=== PATIENT | female | born 1935 | race Caucasian/White ===

== ENCOUNTER 2016-07-14 15:38 | Inpatient (IN) | payer MEDICARE ==
[2016-07-14] MEDS ORDERED: ACETAMINOPHEN 325 MG/TAB TABLET PO ONE (15:44)
[2016-07-14] MEDS ORDERED: NS 1,000 ML IV ONE (15:44)
--- NOTE | 2016-07-14 15:50 | EDPRACDOC ---
- General Information Stated Complaint: FEVER Time Seen by Provider: 07/14/16 15:41 Information Source: Patient, Reading Tutor Mode Of Arrival: Ambulance Home Medications: Home Medications Aspirin [Aspirin EC] 81 mg PO QHS 07/31/13 Calcium Carbonate + Vitamin D [Oscal with Vitamin D] 500 mg PO BID 07/31/13 Cholecalciferol (Vitamin D3) [Vitamin D] 1,000 unit PO DAILY 07/31/13 Hydrochlorothiazide 25 mg PO QAM 07/31/13 Losartan Potassium 100 mg PO DAILY 07/31/13 Liraglutide [Victoza 18 mg/3 ml Pen] 1.8 units SQ DAILY 08/08/14 Omeprazole 20 mg PO DAILY 08/08/14 Fish Oil/Dha/Epa [Fish Oil 1,200 mg Fish Oil] 2 cap PO DAILY 04/29/16 Venlafaxine HCl ER [Effexor Xr] 75 mg PO DAILY PRN 04/29/16 Alprazolam [Xanax] 2 mg PO .PRIOR TO MRI 05/29/16 Cyclobenzaprine HCl [Flexeril] 5 mg PO TID PRN 05/29/16 Promethazine [Phenergan] 25 mg PO Q6H PRN 05/29/16 Fentanyl [Duragesic 25 mcg/hr patch] 25 mcg TOP Q72H #10 patch 06/05/16 LIDOCAINE 5% Patch [Lidoderm 5% Patch] 3 pat TOP Q24H #90 patch 06/05/16 Nabumetone [Relafen] 750 mg PO BID #30 tablet 06/05/16 Oxycodone Immediate Release [Oxycodone Immediate Release (OxyIR)] 5 mg PO Q6H PRN #30 tab 06/05/16 Acetaminophen [Tylenol] 650 mg PO QID 07/14/16 Loperamide HCl [Loperamide] 4 mg PO Q4H PRN 07/14/16 Lorazepam 0.5 mg PO QHS 07/14/16 Ondansetron [Ondansetron Odt] 8 mg PO TID 07/14/16 Sennosides [Senna] 17.2 mg PO QHS 07/14/16 Tramadol HCl [Ultram] 50 mg PO BID 07/14/16 Allergies/Adverse Reactions: Allergies Allergy/AdvReac Type Severity Reaction Status Date / Time pollen extracts Allergy See Verified 05/29/16 12:04 Comments - History of Present Illness Onset: PARCEL POST DELIVERY Exact Onset of Symptoms: Unknown HPI: PT SAID THAT SHE HAS BEEN WEAK FOR THE PAST FEW DAYS. SHE WAS ADMITTED IN MAY FOR RESP FAILURE AND SACRAL FX. SHE WENT TO [facility] AND WAS D/C'D 2 WEEKS AGO. PT SAID THAT SHE FEELS LIKE SHE IS GOING TO PASS OUT IF SHE STANDS UP. Symptoms Started: Reports: Gradually Symptoms Description: Worsening Weakness: Bilateral: Generalized Symptoms: Reports: Near Syncope, Weak Symptom Severity: Reports: Does not affect activitiy Associated signs and symptoms:: Reports: None ED Past Medical History - Patient Medical History Cardiac History: Reports: Hypertension, Hypercholesterolemia GI/ History: Reports: Urinary Tract Infection Musculoskeletal History: Reports: Arthritis Psychological History: Reports: Anxiety. Denies: Depression, Substance Use Disorder Systemic History: Reports: Cancer (skin cancer), Diabetes Surgical History: Reports: Hysterectomy (FULL), Other (SKIN CANCER RESECTION) - Family Medical History Reports: Hypertension, Diabetes, Stroke. Denies: Cancer - Social Medical History Smoking Status: Never smoker Social History: Denies: Substance Use Disorder ETOH: None Substance Abuse: None Lives In: Home EDM Review of Systems - Review of Systems ROS Negative Except as Marked: Yes All systems reviewed and were negative except as marked Constitutional: Fever, Weakness - Physical Exam Constitutional: Alert (Awake), Distress Oriented to: Time, Person, Place Last recorded Vital Signs: Oxygen Pulse Oxygen Saturation O2 Device Oxygen Flow Rate Fraction of Inspired Oxygen ( FIO2) - HEENT Head: Normal ( normocephalic) Eye Exam: Pale Conjunctiva Oropharynx: Other (STOMATITIS) ENT EAC: Normal TMJ: Normal Nose: No Symptoms Reported (septum midline) Neck: Normal (FROM, trachea at midline) - Respiratory/Cardiovascular Respiratory: Rhonchi Cardiovascular: Tachycardia - GI Auscultation: Normal (NABS) Palpation: Normal (Soft,No rebound or guarding, non distended) Tenderness: Non tender Soliz's Sign: Negative Rectal Exam: Heme positive stool Stool: Brown - Musculoskeletal Back: Normal (Non-Tender) Extremities: Normal (Normal tone, Pulses 2+ No cyanosis or edema, FROM) - Integumentary Skin: Hot, Dry Lymphatics: Normal (no adenopathy) - Neurologic Memory Impaired: Normal Motor Function: Normal (Normal tone, Pulses 2+ No cyanosis or edema, FROM) Cranial Nerve: Normal (CN II-X11 intact sensation, strength 5/5) Cerebellar: Normal Mood Description: Normal Thought: Coherent Perception: Normal - Results 07/14/16 15:55 07/14/16 15:55 - EKG EKG #1 EKG Time: 16:09 -: Yes EKG interpreted by me Rate: bpm: 122 [place]: Normal Rhythm: ST Block: None Hypertrophy: None ST: Normal Comparison: 05/29/16 - Diagnostic Imaging Chest Image interpreted by: Radiologist No acute disease. ED Critical Care Note - Critical Care Note Total Time (mins): 30 - Departure Yes I personally saw and evaluated the patient. Disposition: Admit IP To This Hospital Condition: Fair Final Diagnosis: Acute post-hemorrhagic anemia, Acute GI bleeding, Fever, Hyponatremia, Hypocalcemia, Stomatitis Education/Counseling Given To: Patient Education/Counseling Given Regarding: Diagnosis, Treatment Referrals: None,No Provider [NonStaff] - One Week Decision to Admit Time: 18:00 Decision to admit date: 07/14/16 Decision to admit: from ED - Physician Consulted Hospitalist Provider Called: Roberto Amaya
[2016-07-14 16:10] LABS: MPV 7.9 fL (7.4-10.4)
--- NOTE | 2016-07-14 16:24 | DIRPT ---
CLINICAL DATA: Weakness for a few days. Near-syncope today. Initial encounter. EXAM: PORTABLE CHEST 1 VIEW COMPARISON: Single view of the chest 05/30/2016. FINDINGS: The lungs are clear. Heart size is normal. No pneumothorax or pleural effusion. No focal bony abnormality. IMPRESSION: No acute disease. Electronically Signed By: Tyrese Willoughby M.D. On: 07/14/2016 16:22
[2016-07-14 16:26] LABS: PARTIAL THROMB. TIME 28.6 SEC (22-35); PT-INR 1.2
[2016-07-14 16:30] LABS: BLOOD UREA NITROGEN 22 MG/DL (7-17); CALC CORRECTED 9.1 MG/DL (8.4-10.2); CALCIUM 7.7 MG/DL (8.4-10.2); CALCULATED OSMOLALITY 251 MOs/Kg (270-290); CHLORIDE 93 mEq/L (98-107); GLUCOSE 148 MG/DL (70-99); SODIUM LEVEL 127 mEq/L (137-146)
[2016-07-14 16:53] LABS: AMORPHOUS OCC; LEUKOCYTES/URINE NEG (NEGATIVE); NITRITE/URINE NEG (NEGATIVE); URINE OCCULT BLOOD NEG (NEG/TRACE)
[2016-07-14 17:20] LABS: SEG NEUTROPHIL 54 % (45-76)
[2016-07-14] MEDS ORDERED: PROMETHAZINE 25 MG TAB PO PRN (18:22)
[2016-07-14] MEDS ORDERED: CYCLOBENZAPRINE 10 MG TAB PO PRN (18:22)
[2016-07-14] MEDS ORDERED: VENLAFAXINE XR 75 MG CAP PO PRN (18:22)
[2016-07-14] MEDS ORDERED: ONDANSETRON HCL 4 MG/2 ML VIAL IV PRN (18:26)
[2016-07-14] MEDS ORDERED: DEXTROSE 25 GM/50 ML PFS IV PRN (18:27)
[2016-07-14] MEDS ORDERED: ALBUTEROL 0.083% 3 ML NEB NEB PRN (18:27)
[2016-07-14] MEDS ORDERED: GLUCAGON 1 MG VIAL SQ PRN (18:27)
[2016-07-14] MEDS ORDERED: GLUCOSE (ORAL GEL) 15 GM TUBE PO PRN (18:27)
[2016-07-14] MEDS ORDERED: ALPRAZOLAM 2 MG PO SCH (18:30)
[2016-07-14] MEDS ORDERED: LOPERAMIDE 2 MG CAP PO PRN (18:51)
[2016-07-14] MEDS ORDERED: CYCLOBENZAPRINE 5 MG TAB PO PRN (18:59)
--- NOTE | 2016-07-14 19:34 | DIRPT ---
CLINICAL DATA: 81-year-old female with bilateral hip pain following fall 2 months ago. History of right pubic and bilateral sacral fractures with bilateral sacroplasties. EXAM: BILATERAL HIP (WITH PELVIS) 4+ VIEW COMPARISON: 05/20/2016 and prior exams FINDINGS: Healing of the right pubic rami are again identified. The medial right superior pubic ramus fracture may extend into the right acetabulum. Bilateral sacroplasty changes are noted. There is no evidence of acute fracture, subluxation or dislocation. No focal bony lesions are identified. IMPRESSION: No evidence of acute abnormality. Right pubic fractures and bilateral sacral plasties identified. The medial right superior pubic ramus fracture may extend into the right acetabulum. Consider further evaluation as clinically indicated. Electronically Signed By: Alex Marley M.D. On: 07/14/2016 19:31
[2016-07-14] MEDS ORDERED: SENNA CONCENTRATE TAB PO SCH (21:00)
[2016-07-14] MEDS ORDERED: REMOVE PATCH MAR ALERT SCH (21:00)
[2016-07-14] MEDS: NABUMETONE 500 MG TAB PO SCH (22:59)
[2016-07-14] MEDS: LORAZEPAM 0.5 MG TAB PO SCH (23:00)
[2016-07-14] MEDS: PANTOPRAZOLE 40 MG VIAL IV SCH (23:00)
[2016-07-14] MEDS: TRAMADOL HCL 50 MG TAB PO SCH (23:01)
[2016-07-15] MEDS: REGULAR INSULIN 100 UNITS/ML - 3 ML VIAL SQ SCH ×5 (00:39→20:27)
[2016-07-15 06:00] LABS: MPV 8.2 fL (7.4-10.4)
[2016-07-15 06:14] LABS: BLOOD UREA NITROGEN 20 MG/DL (7-17); CALCIUM 7.8 MG/DL (8.4-10.2); CALCULATED OSMOLALITY 258 MOs/Kg (270-290); CHLORIDE 99 mEq/L (98-107); GLUCOSE 105 MG/DL (70-99); SODIUM LEVEL 132 mEq/L (137-146)
[2016-07-15] MEDS ORDERED: LIRAGLUTIDE 18 MG/3ML (0.6 MG/0.1 ML) PEN SQ SCH (09:00)
[2016-07-15] MEDS ORDERED: HYDROCHLOROTHIAZIDE 25 MG TAB PO SCH (09:00)
[2016-07-15] MEDS ORDERED: LIDOCAINE 5% PATCH TOP SCH (09:00)
--- NOTE | 2016-07-15 09:11 | GENMEDPROG ---
Chief Complaint: Generalized weakness sore mouth x 2wks L mid femur pain X 1 week Notes Reviewed: Yes Events from last night noted and discussed with Clinical Staff Current Medication List: Reviewed DVT Prophylaxis: Yes - Physical Examination Vital Signs and I&O: Last Vital Signs Temp 97.5 F 07/15/16 03:57 Pulse 84 07/15/16 07:00 Resp 18 07/15/16 03:57 BP 135/67 07/15/16 03:57 Pulse Ox 93 07/15/16 03:57 Oxygen Pulse Oxygen Saturation 93 O2 Device Room Air Oxygen Flow Rate Fraction of Inspired Oxygen ( FIO2) Intake & Output 07/12/16 07/13/16 07/14/16 07/15/16 23:59 23:59 23:59 23:59 Intake Total 1000 Output Total 300 Balance 1000 -300 Patient's weight 68.765 kg 69.626 kg General: Alert, Oriented x3, No acute distress, Well appearing, Well nourished HEENT: Normal (Normocephalic, atraumatic;EOMI.Sclera white, Nares patent, without discharge or bleeding. No oropharyngeal lesions or erythema. Mucous membranes are dry.) Neck: Non-tender, Normal Trachea alignment, Normal inspection (No cervical lymphadenopathy. No supraclavicular lymphadenopathy.), No Masses palpable, Limited range of motion Lymphatics: Normal (No lymph node swelling or pain.) Respiratory: Normal - CTA (Clear to auscultation bilaterally, no wheezing,rales or rhonchi. No use of accessory muscles) Cardiovascular: Regular rate and rhythm (No bradycardia or tachycardia), Normal S1, No Gallops,Rubs/Murmurs, Normal S2, Good Pedal Pulses (DP pulses 2+ bilaterally) GI: Normal bowel sounds (normal active sounds), Soft (non-distended), Non tender , No hepatospenomegaly, No masses Extremities/Musculoskeletal: Normal pulses (DP pulses 2+ bilaterally) Skin: Warm,Dry and Intact, No rashes, No significant lesion Neurological: Normal tone, Cranial nerves 3-12 NL ( 2-12 grossly intact.) Psych/Mental Status: Appropriate, Normal Affect Lab/DI/Studies Reviewed: 07/15/16 04:50 07/15/16 04:50 Laboratory Results - last 24 hr 07/14/16 07/14/16 07/14/16 15:55 15:55 15:55 WBC 6.6 RBC 2.94 L Hgb 8.0 L Hct 24.8 L MCV 84 MCH 27.2 MCHC 32.2 L RDW 22.4 H Plt Count 180 MPV 7.9 Neut % (Auto) Cancelled Lymph % (Auto) Cancelled Sutton % (Auto) Cancelled Eos % (Auto) Cancelled Baso % (Auto) Cancelled Absolute Neuts (auto) Cancelled Absolute Lymphs (auto) Cancelled Seg Neuts % (Manual) 54 Band Neutrophils % 3 Lymphocytes % (Manual) 20 Monocytes % (Manual) 23 H Absolute Neutrophils 3.76 Absolute Lymphocytes 1.32 Nucl RBC Rel Cnt (Man) 1 Platelet Estimate Norm RBC Morphology Norm PT INR APTT Sodium 127 L Potassium 4.0 Chloride 93 L Carbon Dioxide 26 Anion Gap 12 BUN 22 H Creatinine 1.00 Estimated GFR (MDRD) 53 L Glucose 148 H POC Capillary Glucose Calculated Osmolality 251 L Lactic Acid 1.3 Calcium 7.7 L Corrected Calcium 9.1 Total Bilirubin 0.8 AST 23 ALT 31 Alkaline Phosphatase 118 Troponin I < 0.01 Total Protein 6.0 L Albumin 2.6 L Urine Color Urine Clarity Urine pH Ur Specific Norris Urine Protein Urine Glucose (UA) Urine Ketones Urine Occult Blood Urine Nitrite Urine Bilirubin Urine Urobilinogen Ur Leukocyte Esterase Urine RBC Urine WBC Ur Epithelial Cells Amorphous Sediment Urine Bacteria Hyaline Casts Urine Mucus Blood Type Antibody Screen Crossmatch 07/14/16 07/14/16 07/14/16 15:55 16:15 17:17 WBC RBC Hgb Hct MCV MCH MCHC RDW Plt Count MPV Neut % (Auto) Lymph % (Auto) Sutton % (Auto) Eos % (Auto) Baso % (Auto) Absolute Neuts (auto) Absolute Lymphs (auto) Seg Neuts % (Manual) Band Neutrophils % Lymphocytes % (Manual) Monocytes % (Manual) Absolute Neutrophils Absolute Lymphocytes Nucl RBC Rel Cnt (Man) Platelet Estimate RBC Morphology PT 12.6 H INR 1.2 APTT 28.6 Sodium Potassium Chloride Carbon Dioxide Anion Gap BUN Creatinine Estimated GFR (MDRD) Glucose POC Capillary Glucose Calculated Osmolality Lactic Acid Calcium Corrected Calcium Total Bilirubin AST ALT Alkaline Phosphatase Troponin I Total Protein Albumin Urine Color Yellow Urine Clarity Sl cldy Urine pH 5.0 Ur Specific Norris 1.010 Urine Protein 1+ H Urine Glucose (UA) Neg Urine Ketones Neg Urine Occult Blood Neg Urine Nitrite Neg Urine Bilirubin Neg Urine Urobilinogen 2 H Ur Leukocyte Esterase Neg Urine RBC 2-5 Urine WBC 2-5 Ur Epithelial Cells Occ Amorphous Sediment Occ Urine Bacteria 1+ H Hyaline Casts 2-5 H Urine Mucus Occ Blood Type AB POSITIVE Antibody Screen Negative Crossmatch See Detail 07/14/16 07/14/16 07/14/16 18:44 22:00 22:44 WBC RBC Hgb Hct MCV MCH MCHC RDW Plt Count MPV Neut % (Auto) Lymph % (Auto) Sutton % (Auto) Eos % (Auto) Baso % (Auto) Absolute Neuts (auto) Absolute Lymphs (auto) Seg Neuts % (Manual) Band Neutrophils % Lymphocytes % (Manual) Monocytes % (Manual) Absolute Neutrophils Absolute Lymphocytes Nucl RBC Rel Cnt (Man) Platelet Estimate RBC Morphology PT INR APTT Sodium Potassium Chloride Carbon Dioxide Anion Gap BUN Creatinine Estimated GFR (MDRD) Glucose POC Capillary Glucose 122 H Calculated Osmolality Lactic Acid Calcium Corrected Calcium Total Bilirubin AST ALT Alkaline Phosphatase Troponin I < 0.01 < 0.01 Total Protein Albumin Urine Color Urine Clarity Urine pH Ur Specific Norris Urine Protein Urine Glucose (UA) Urine Ketones Urine Occult Blood Urine Nitrite Urine Bilirubin Urine Urobilinogen Ur Leukocyte Esterase Urine RBC Urine WBC Ur Epithelial Cells Amorphous Sediment Urine Bacteria Hyaline Casts Urine Mucus Blood Type Antibody Screen Crossmatch 07/14/16 07/15/16 07/15/16 23:10 04:50 04:50 WBC 4.6 RBC 2.59 L Hgb 7.3 L 7.1 L Hct 22.3 L 21.9 L MCV 85 MCH 27.2 MCHC 32.2 L RDW 22.5 H Plt Count 147 MPV 8.2 Neut % (Auto) Lymph % (Auto) Sutton % (Auto) Eos % (Auto) Baso % (Auto) Absolute Neuts (auto) Absolute Lymphs (auto) Seg Neuts % (Manual) Band Neutrophils % Lymphocytes % (Manual) Monocytes % (Manual) Absolute Neutrophils Absolute Lymphocytes Nucl RBC Rel Cnt (Man) Platelet Estimate RBC Morphology PT INR APTT Sodium 132 L Potassium 4.2 Chloride 99 Carbon Dioxide 25 Anion Gap 12 BUN 20 H Creatinine 0.80 Estimated GFR (MDRD) > 60 Glucose 105 H POC Capillary Glucose Calculated Osmolality 258 L Lactic Acid Calcium 7.8 L Corrected Calcium Total Bilirubin AST ALT Alkaline Phosphatase Troponin I Total Protein Albumin Urine Color Urine Clarity Urine pH Ur Specific Norris Urine Protein Urine Glucose (UA) Urine Ketones Urine Occult Blood Urine Nitrite Urine Bilirubin Urine Urobilinogen Ur Leukocyte Esterase Urine RBC Urine WBC Ur Epithelial Cells Amorphous Sediment Urine Bacteria Hyaline Casts Urine Mucus Blood Type Antibody Screen Crossmatch 07/15/16 05:39 WBC RBC Hgb Hct MCV MCH MCHC RDW Plt Count MPV Neut % (Auto) Lymph % (Auto) Sutton % (Auto) Eos % (Auto) Baso % (Auto) Absolute Neuts (auto) Absolute Lymphs (auto) Seg Neuts % (Manual) Band Neutrophils % Lymphocytes % (Manual) Monocytes % (Manual) Absolute Neutrophils Absolute Lymphocytes Nucl RBC Rel Cnt (Man) Platelet Estimate RBC Morphology PT INR APTT Sodium Potassium Chloride Carbon Dioxide Anion Gap BUN Creatinine Estimated GFR (MDRD) Glucose POC Capillary Glucose 112 H Calculated Osmolality Lactic Acid Calcium Corrected Calcium Total Bilirubin AST ALT Alkaline Phosphatase Troponin I Total Protein Albumin Urine Color Urine Clarity Urine pH Ur Specific Norris Urine Protein Urine Glucose (UA) Urine Ketones Urine Occult Blood Urine Nitrite Urine Bilirubin Urine Urobilinogen Ur Leukocyte Esterase Urine RBC Urine WBC Ur Epithelial Cells Amorphous Sediment Urine Bacteria Hyaline Casts Urine Mucus Blood Type Antibody Screen Crossmatch - Assessment (1) Acute GI bleeding Acute K92.2 - GASTROINTESTINAL HEMORRHAGE, UNSPECIFIED Comment/Plan: Patient being admitted to the hospital with evidence of upper GI bleed, and has heme-positive stool with dropping hemoglobin. She does take aspirin which must stop here and now. She has been seen in the past by Dr. Pat of Gastroenterology for screening colonoscopy. He will scope when time permits. His input is greatly appreciated and highly necessary. Proton pump inhibition is ordered. Patient will be admitted to the hospital, with clear liquid diet to telemetry floor for close monitoring. Will check hemoglobin q.8 hours. Will start IV pantoprazole Q 24 hours. Hold aspirin. Keep hemoglobin greater than or equal to 7. Will consult Dr. Pat in the morning. (2) Acute post-hemorrhagic anemia Acute D62 - ACUTE POSTHEMORRHAGIC ANEMIA Comment/Plan: Likely due to upper GI bleed as noted above. Since patient has acute GI bleed hemoglobin continues to drop and now it is down to 7.1 will go ahead and give 1 unit of pack cells. (3) Hypertension Chronic I10 - ESSENTIAL (PRIMARY) HYPERTENSION Qualifiers: Hypertension type: essential hypertension Qualified Code(s): I10 - Essential (primary) hypertension Comment/Plan: Continue home medications, but hold Arb in order to avoid hypotension this woman without upper GI bleed. (4) Hyperglycemia Acute R73.9 - HYPERGLYCEMIA, UNSPECIFIED Comment/Plan: Check sliding-scale glucoses. Her glycohemoglobin is 7.0 as well as check urine microalbumin. I have not yet told her the results of her A1c. Case Care Discussed with: Patient, Nursing Staff, Resource Management Education/Counseling Given To: Patient Education/Counseling Given Regarding: Diagnosis Total Time: 38 min Critical Care: No Code: [id number] (12+)
[2016-07-15] MEDS: NABUMETONE 500 MG TAB PO SCH (09:24)
[2016-07-15] MEDS: TRAMADOL HCL 50 MG TAB PO SCH (10:15)
[2016-07-15] MEDS: NYSTATIN ORAL SUSP 5 ML PO SCH ×3 (12:17→20:14)
[2016-07-15] MEDS: FLUCONAZOLE 100 MG TAB PO SCH (12:17)
[2016-07-15] MEDS: MAGIC MOUTHWASH 180 ML ORAL SUSP PO SCH ×3 (12:21→20:27)
--- NOTE | 2016-07-15 13:05 | HISTPHYS ---
- Chief Complaint Weakness - History of Present Illness This is a pleasant 81-year-old female with a history of recent pelvic fracture and hospital stay here for sacroplasty and recent stay at [facility] who was being admitted to the hospital [facility] with fever and upper GI bleeding. The patient and her close friend who was at the bedside in the emergency department this evening tell me that she just returned home a couple of weeks ago, she has been doing decently well but has been getting slowly and progressively weaker over the last couple of weeks since leaving the custodial. She besides being generally weak, has been having trouble with ambulation and work with physical therapy due to quite severe left hip pain that radiates down her left leg down to the calf area, this pain occurs every time she ambulates. She also has developed some ulcers in her mouth and lip which are quite painful and make it difficult for her to eat. They have been using some topical treatment over the counter treatments, and they have been helping quite a bit, the ulcers are starting to scab over and become less painful. She has an appointment to see Dr. Pat tomorrow to discuss the oral lesions and see if they are related to her history of GERD. She denies any blood in her stool, nausea, vomiting, abdominal pain or heartburn. She did not feel warm or feel like she had any fevers at home. Was noted to be more anemic than usual in the hospital [facility], and a rectal exam done by the emergency department physician revealed heme-positive stool. - Medical History Cardiac History: Reports: Hypertension, Hypercholesterolemia GI/ History: Reports: Urinary Tract Infection Musculoskeletal History: Reports: Arthritis Systemic History: Reports: Cancer (skin cancer), Diabetes Psychological History: Reports: Anxiety. Denies: Depression, Substance Use Disorder - Surgical History Reports: Hysterectomy (FULL), Other (SKIN CANCER RESECTION) - Medictions/Allergies Allergies pollen extracts Allergy (Verified 05/29/16 12:04) See Comments SINUS PROBLEMS/WATERY EYES Home Medications Aspirin [Aspirin EC] 81 mg PO QHS 07/31/13 Calcium Carbonate + Vitamin D [Oscal with Vitamin D] 500 mg PO BID 07/31/13 Cholecalciferol (Vitamin D3) [Vitamin D] 1,000 unit PO DAILY 07/31/13 Hydrochlorothiazide 25 mg PO QAM 07/31/13 Losartan Potassium 100 mg PO DAILY 07/31/13 Liraglutide [Victoza 18 mg/3 ml Pen] 1.8 units SQ DAILY 08/08/14 Omeprazole 20 mg PO DAILY 08/08/14 Fish Oil/Dha/Epa [Fish Oil 1,200 mg Fish Oil] 2 cap PO DAILY 04/29/16 Venlafaxine HCl ER [Effexor Xr] 75 mg PO DAILY PRN 04/29/16 Alprazolam [Xanax] 2 mg PO .PRIOR TO MRI 05/29/16 Cyclobenzaprine HCl [Flexeril] 5 mg PO TID PRN 05/29/16 Promethazine [Phenergan] 25 mg PO Q6H PRN 05/29/16 Fentanyl [Duragesic 25 mcg/hr patch] 25 mcg TOP Q72H #10 patch 06/05/16 LIDOCAINE 5% Patch [Lidoderm 5% Patch] 3 pat TOP Q24H #90 patch 06/05/16 Nabumetone [Relafen] 750 mg PO BID #30 tablet 06/05/16 Oxycodone Immediate Release [Oxycodone Immediate Release (OxyIR)] 5 mg PO Q6H PRN #30 tab 06/05/16 Acetaminophen [Tylenol] 650 mg PO QID 07/14/16 Loperamide HCl [Loperamide] 4 mg PO Q4H PRN 07/14/16 Lorazepam 0.5 mg PO QHS 07/14/16 Ondansetron [Ondansetron Odt] 8 mg PO TID 07/14/16 Sennosides [Senna] 17.2 mg PO QHS 07/14/16 Tramadol HCl [Ultram] 50 mg PO BID 07/14/16 - Family History Reports: Hypertension, Diabetes, Stroke. Denies: Cancer - Social History Smoking Status: Never smoker Social History: Denies: Substance Use Disorder - Review of Systems Yes All systems reviewed and were negative except as marked (And as mentioned in the history of present illness above.) - Physical Exam Vital Signs: Initial Vitals Temperature 100.3 F 07/14/16 16:07 Pulse Rate 121 H 07/14/16 16:07 Respiratory Rate 22 07/14/16 16:07 Blood Pressure 113/55 L 07/14/16 16:07 Pulse Oxygen Saturation 96 07/14/16 16:07 Constitutional: Alert (Awake, Fully oriented, well appearing. No apparent distress) Oriented to: Time, Person, Place - HEENT Head: Normal (normocephalic,atraumatic, trachea midline) Eye: Normal (EOMI, Sclera white) Oropharynx: Normal (moist) Nose: No Symptoms Reported (without discharge or bleeding) Respiratory: Normal - CTA (Clear to auscultation bilaterally, no wheezing,rales or rhonchi. No use of accessory muscles) Cardiovascular: Normal (RRR, no murmurs, rubs or gallops) - GI Palpation: Normal (soft, non distended and nontender) - Musculoskeletal Extremities: Normal (normal tone, no cyanosis or edema) - Integumentary Skin: Normal (no rashes or lesions) - Neurologic Cranial Nerve: Normal (CN II-XII intact) Mood Description: Normal (Fully oriented and appropiate affect) - Other Exam Other Exam Findings: Abdomen obese and soft. No abdominal pain to palpation. No pain in the leg with active and passive range of motion of the knee, ankle and hip. - Focused CV Perfusion Exam Vital Signs: Last Vital Signs Temp 100.3 F 07/14/16 16:07 Pulse 118 07/14/16 16:53 Resp 18 07/14/16 16:53 BP 121/58 L 07/14/16 16:53 Pulse Ox 93 07/14/16 16:53 - Lab Results Laboratory Tests 06/04/16 07/14/16 07/14/16 05:40 15:55 15:55 WBC 6.6 Hgb 9.7 L 8.0 L INR Sodium 127 L Potassium 4.0 BUN 22 H Creatinine 1.00 Troponin I < 0.01 Total Protein 6.0 L Albumin 2.6 L 07/14/16 15:55 WBC Hgb INR 1.2 Sodium Potassium BUN Creatinine Troponin I Total Protein Albumin - Diagnostic Findings Chest x-ray done this evening with no acute process identified. - Assessment (1) Acute GI bleeding K92.2 - GASTROINTESTINAL HEMORRHAGE, UNSPECIFIED Acute Patient being admitted to the hospital with evidence of upper GI bleed, without any evidence of lucas bleeding, but heme-positive stool. She does take aspirin. She has been seen in the past by Dr. Pat of Gastroenterology for screening colonoscopy. Patient will be admitted to the hospital, with clear liquid diet to telemetry floor for close monitoring. Will check hemoglobin q.8 hours. Will start IV pantoprazole Q 24 hours. Hold aspirin. Keep hemoglobin greater than or equal to 7. Will consult Dr. Pat in the morning. (2) Acute post-hemorrhagic anemia D62 - ACUTE POSTHEMORRHAGIC ANEMIA Acute Likely due to upper GI bleed as noted above. Currently does not need blood transfusion, but will follow hemoglobin and hematocrit q.8 hours, transfuse for hemoglobin below 7. (3) Fever R50.9 - FEVER, UNSPECIFIED Acute Qualifiers: Fever type: F Encounter type: E Unclear etiology, could be related to her oral ulcerations. These ulcerations appear to be crusted over and healing, continue topical treatment. (4) Hyponatremia E87.1 - HYPO-OSMOLALITY AND HYPONATREMIA Acute Mild and asymptomatic. Will administer gentle IV normal saline and recheck sodium level in the morning. (5) Stomatitis K12.1 - OTHER FORMS OF STOMATITIS Acute (6) Physical deconditioning R53.81 - OTHER MALAISE Acute PTOT consulted. (7) Sacral fracture, closed S32.10XA - UNSP FRACTURE OF SACRUM, INIT ENCNTR FOR CLOSED FRACTURE Acute Qualifiers: Encounter type: initial encounter Zone of sacrum fracture: unspecified portion of sacrum Fracture morphology: F Fracture alignment: F Fracture healing: F Qualified Code(s): S32.10XA - Unspecified fracture of sacrum, initial encounter for closed fracture Continue home pain medications, she is doing overall well, but complaining of quite severe pain in her leg at times after she ambulates at home, this is also limiting her ability to participate with physical therapy. As such, will have Physical therapy consulted here, and obtain x-rays of the hips and pelvis to ensure that there is no new or degenerated injury. She denies any history of trauma since her last hospital admission. (8) Hypertension I10 - ESSENTIAL (PRIMARY) HYPERTENSION Chronic Qualifiers: Hypertension type: essential hypertension Qualified Code(s): I10 - Essential (primary) hypertension Continue home medications, but hold Arb in order to avoid hypotension this woman without upper GI bleed. Case Care Discussed with: Patient, Family, Nursing Staff Total Time: 59 <Electronically signed by Roberto Amaya MD> 07/14/161910 MARTHA
[2016-07-15] MEDS: ACETAMINOPHEN 325 MG/TAB TABLET PO PRN (16:44)
--- NOTE | 2016-07-15 18:39 | PCM.CONSGI ---
Consult Date: 07/15/16 Consult Requesting Physician: Deni Luu Consult Reason: Anemia - History of Present Illness Ms. Pate is 81-year-old female with recent history complicated by pelvic fracture limited ambulation who developed more generalized weakness and decreased ambulatory ability. On arrival to the emergency room she was found to be severely anemic. She was subsequently admitted for further care and evaluation. With her sacral fracture and medical problems she has had multiple complications including intubation secondary to overuse of pain medication. She has had a sacral plasty during her hospitalization 06-05. He was in rehab. She has been home for the last 3 weeks. She was ambulating relatively well with a walker. She did has developed more weakness. With her falls and back discomfort she has lost 40 lb in the last 6-8 weeks. This the they feel is from decreased p.o. intake. This because of persistent nausea emesis nonbloody and multiple oral sores occur during her acute illness. Her oral lesions were beginning to improve. Her appetite has and has improved somewhat. She had a small amount of solid food yesterday and is tolerated liquid diet in the hospital. She still complains some with nausea. She does take ranitidine and omeprazole on a daily basis. She does have a history of chronic constipation. Recently she has had less problems with this. She has been taking a stool softener daily. She has been taking MiraLax p.r.n.. She is averaging about 3 bowel movements per week. She denies gross blood or melena being noted. Colonoscopy 03-17-11 diminutive Colon rectal polyps mild diverticular disease left colon small internal hemorrhoids Upper endoscopy 08-01-13 gastritis hiatal hernia irregular GE junction with no evidence of Mcdaniel's esophagus on biopsies mild esophagitis - Past Medical History Cardiac History: Reports: Hypertension, Hypercholesterolemia Respiratory History: Reports: No Significant History GI/ History: Reports: Chronic Constipation, Colon Polyps, Diverticulosis, GERD Musculoskeletal History: Reports: Arthritis Systemic History: Reports: Anemia, Cancer (skin) Psychological History: Denies: Substance Use Disorder - Surgical History Past Surgical History: Reports: Appendectomy, Hysterectomy (FULL) - Procedure History Procedure History: Reports: Colonoscopy - Family History Family History: Reports: Diabetes, Hypertension, Stroke. Denies: Cancer - Allergies Allergies pollen extracts Allergy (Verified 05/29/16 12:04) See Comments SINUS PROBLEMS/WATERY EYES - Medications Home Medications Aspirin [Aspirin EC] 81 mg PO QHS 07/31/13 Calcium Carbonate + Vitamin D [Oscal with Vitamin D] 500 mg PO BID 07/31/13 Cholecalciferol (Vitamin D3) [Vitamin D] 1,000 unit PO DAILY 07/31/13 Losartan Potassium 100 mg PO DAILY 07/31/13 Liraglutide [Victoza 18 mg/3 ml Pen] 1.8 units SQ DAILY 08/08/14 Omeprazole 20 mg PO DAILY 08/08/14 Venlafaxine HCl ER [Effexor Xr] 75 mg PO DAILY PRN 04/29/16 Cyclobenzaprine HCl [Flexeril] 5 mg PO TID PRN 05/29/16 Promethazine [Phenergan] 25 mg PO Q6H PRN 05/29/16 Nabumetone [Relafen] 750 mg PO BID #30 tablet 06/05/16 Oxycodone Immediate Release [Oxycodone Immediate Release (OxyIR)] 5 mg PO Q6H PRN #30 tab 06/05/16 Loperamide HCl [Loperamide] 4 mg PO Q4H PRN 07/14/16 Lorazepam 0.5 mg PO QHS 07/14/16 Ondansetron [Ondansetron Odt] 8 mg PO TID 07/14/16 Polyethylene Glycol 3350 [Miralax] 17 gm PO DAILY PRN 07/14/16 Pravastatin Sodium [Pravachol] 20 mg PO QHS 07/14/16 Ranitidine HCl 300 mg PO DAILY 07/14/16 - Social History Lives: With Family Smoking Status: Never smoker Social History: Denies: Substance Use Disorder - Review of Systems Constitutional: Fatigue, Loss of Appetite, Weakness, Weight loss. negative: Fever Eyes: negative: Double Vision Ears: negative: Hearing Loss Throat: negative: Hoarseness Nose: negative: Congestion Respiratory: negative: Cough, Hemoptysis, Shortness of Breath Cardiovascular: negative: Chest Pain, Edema Gastrointestinal: Nausea, Vomiting, Constipation, Heartburn, Other (Oral lesions ). negative: Melena, Hematochezia, Dysphasia Genitourinary: negative: Hematuria Neurological: Gait Difficulty, Weakness. negative: Dizziness Musculoskeletal: Chronic low back pain, Arthritis, Osteoarthritis Integumentary: negative: Bruising Allergic/Immunologic: negative: Itching Hematologic: Anemia Endocrine: Weight Loss Psychiatric: Depression. negative: Anxiety - Exam Vital Signs: Temperature: 98.0 F (07/15/16 17:50) HR: 99 (07/15/16 18:25) RR: 18 (07/15/16 17:50) BP: 108/61 (07/15/16 17:50) Pulse Ox: 96 (07/15/16 17:50) General: Alert, Oriented x3, Cooperative, Mild distress HEENT: negative: Icteric Sclera Respiratory: Normal - CTA. negative: Accessory Muscle Use Cardiovascular: Regular rate Gastrointestinal: Soft, Bowel Sounds, Tender (In the epigastrium but more across the lower abdomen bilateral). negative: Distended Extremities: negative: Edema Skin: Warm,Dry and Intact Neurological: Normal speech Psych/Mental Status: Appropriate - Labs Result Diagrams: 07/15/16 04:50 07/15/16 04:50 Laboratory Tests 05/31/16 06/04/16 07/14/16 10:48 05:40 15:55 Hgb 10.2 L 9.7 L PT INR Corrected Calcium 9.1 Total Bilirubin 0.8 AST 23 ALT 31 Alkaline Phosphatase 118 Total Protein 6.0 L Albumin 2.6 L 07/14/16 07/14/16 07/14/16 15:55 15:55 23:10 Hgb 8.0 L 7.3 L PT 12.6 H INR 1.2 Corrected Calcium Total Bilirubin AST ALT Alkaline Phosphatase Total Protein Albumin - Assessment and Plan (1) Acute GI bleeding Acute K92.2 - GASTROINTESTINAL HEMORRHAGE, UNSPECIFIED (2) Stomatitis Acute K12.1 - OTHER FORMS OF STOMATITIS (3) Nausea & vomiting Acute R11.2 - NAUSEA WITH VOMITING, UNSPECIFIED V V (4) Constipation Acute K59.00 - CONSTIPATION, UNSPECIFIED C (5) Physical deconditioning Acute R53.81 - OTHER MALAISE (6) Sacral fracture, closed Acute S32.10XA - UNSP FRACTURE OF SACRUM, INIT ENCNTR FOR CLOSED FRACTURE initial encounter unspecified portion of sacrum F F F S32.10XA - Unspecified fracture of sacrum, initial encounter for closed fracture (7) Vertebral compression fracture Acute M48.50XA - COLLAPSED VERTEBRA, NEC, SITE UNSP, INIT initial encounter F M48.50XA - Collapsed vertebra, not elsewhere classified, site unspecified, initial encounter for fracture (8) Hypertension Chronic I10 - ESSENTIAL (PRIMARY) HYPERTENSION essential hypertension I10 - Essential (primary) hypertension Recommendations: 1. Continue care for other multiple medical problems 2. Transfuse as needed 3. Monitor hemoglobin 4. PPI and H2 tejal therapy 5. Arrange for upper endoscopy
--- NOTE | 2016-07-15 19:01 | DIRPT ---
CLINICAL DATA: Mid femur pain EXAM: LEFT FEMUR - 2 VIEW COMPARISON: 05/20/2016 FINDINGS: No acute fracture. No destructive bone lesion. Unremarkable soft tissues. IMPRESSION: No acute bony pathology. Electronically Signed By: Trevor Mancilla M.D. On: 07/15/2016 18:59
[2016-07-15] MEDS: LORAZEPAM 0.5 MG TAB PO SCH (20:14)
[2016-07-15] MEDS: PRAVASTATIN 20 MG TAB PO SCH (20:14)
[2016-07-15] MEDS: PANTOPRAZOLE 40 MG VIAL IV SCH (20:14)
[2016-07-16] MEDS: REGULAR INSULIN 100 UNITS/ML - 3 ML VIAL SQ SCH ×4 (04:21→20:24)
[2016-07-16] MEDS ORDERED: DIPHENHYDRAMINE 50 MG/ML VIAL ONE (06:30)
[2016-07-16] MEDS ORDERED: MEPERIDINE 25 MG/ML TUBEX ONE (06:30)
[2016-07-16] MEDS ORDERED: MIDAZOLAM 5 MG/5 ML VIAL ONE (06:30)
[2016-07-16] MEDS ORDERED: NS 1,000 ML IV ONE (06:30)
[2016-07-16 06:31] LABS: BLOOD UREA NITROGEN 22 MG/DL (7-17); CALCIUM 8.5 MG/DL (8.4-10.2); CALCULATED OSMOLALITY 263 MOs/Kg (270-290); CHLORIDE 100 mEq/L (98-107); GLUCOSE 95 MG/DL (70-99); SODIUM LEVEL 135 mEq/L (137-146)
[2016-07-16 06:39] LABS: MPV 8.4 fL (7.4-10.4)
[2016-07-16] MEDS ORDERED: RANITIDINE 150 MG TAB PO SCH (09:00)
[2016-07-16] MEDS ORDERED: CYCLOBENZAPRINE 5 MG TAB PO PRN (09:09)
[2016-07-16] MEDS ORDERED: Pharmacy Review for Metformin - IV Contrast Given SCH ×2 (10:00→13:00)
[2016-07-16] MEDS ORDERED: Vaccine Screening Complete SCH (10:00)
--- NOTE | 2016-07-16 10:32 | HIMOPRPT ---
DATE OF PROCEDURE: 07/16/16 PROCEDURE: Esophagogastroduodenoscopy with biopsy . INDICATIONS: anemia nausea emesis INSTRUMENTS: Olympus video upper endoscope. MEDICATIONS: Versed 3 mg IV and Demerol 50 mg IV. PHYSICAL EXAMINATION: GENERAL: The patient was in no distress. VITAL SIGNS: Stable. CHEST: Clear CARDIAC: Regular rate and rhythm. ABDOMEN: [Nondistended, nontender]. NEUROLOGIC: The patient was alert and oriented. DESCRIPTION OF PROCEDURE: Ms Pate was placed in a left lateral position and IV sedation was given in small incremental doses for the patient's comfort for moderate sedation. The throat was anesthetized with Cetacaine spray.The endoscope was advanced without difficulty into the duodenum. ESOPHAGUS: Esophagus had gastroesophageal junction located at 35 cm, The GE junction was well distended. The distal esophagus was inflamed with a few small erosions present. STOMACH: [Stomach had a few erosions in the body fundus that were biopsied A Hiatal Hernia was present. DUODENUM: The duodenum was normal. Antral and fundal biopsies were obtained for H. pylori testing. Small bowel biopsies were obtained for histology. The patient tolerated the procedure well. IMPRESSION: 1. Erosive esophagitis LA classification B 2. Erosive gastritis 3. Hiatal hernia RECOMMENDATIONS: 1. PPI and H2 tejal therapy 2. Antacids 3. Continue Magic Mouthwash and Nystatin 4. [place] diet 5. Awaiting pathology
--- NOTE | 2016-07-16 10:38 | PCM.ORTHCO ---
Consultation Date: 07/16/16 Requesting Physician: Cheli [facility] [employer] [facility] Professor: Ange Berry (Kamari) Reason for Consult: Other (altered gait over the past several weeks. Pain in the left knee after prolonged walking.) - History of Present Illness Patient has history of recent bilateral SI fractures and right pubic rami fractures. She was treated with sacroiliacal plasty through radiology. She was doing much better without pain. She was ambulating with her walking. Over the past several weeks she has had pain in the left leg with prolonged walking. Her right leg is pain free. She denies any back pain or hip pain. No pain at rest. No history of knee issues. She denies numbness and tingling. No radiation of pain from the back or hip to the knee. Pain is located at the knee area when it occurs. - Past Medical and Surgical History Cardiac History: Reports: No Significant History, Hypertension, Hypercholesterolemia Respiratory History: Reports: No Significant History GI/ History: Reports: No Significant History, Gastroesophageal Reflux, Diverticulosis Systemic History: Reports: No Significant History, Cancer (skin), Anemia Musculoskeletal History: Reports: No Significant History, Arthritis Psychological History: Reports: No Significant History. Denies: Substance Use Disorder Neurological History: Reports: No Significant History Past Surgical History: Reports: No Significant History, Appendectomy, Hysterectomy (FULL) Allergies pollen extracts Allergy (Verified 05/29/16 12:04) See Comments SINUS PROBLEMS/WATERY EYES Home Medications Aspirin [Aspirin EC] 81 mg PO QHS 07/31/13 Calcium Carbonate + Vitamin D [Oscal with Vitamin D] 500 mg PO BID 07/31/13 Cholecalciferol (Vitamin D3) [Vitamin D] 1,000 unit PO DAILY 07/31/13 Losartan Potassium 100 mg PO DAILY 07/31/13 Liraglutide [Victoza 18 mg/3 ml Pen] 1.8 units SQ DAILY 08/08/14 Omeprazole 20 mg PO DAILY 08/08/14 Venlafaxine HCl ER [Effexor Xr] 75 mg PO DAILY PRN 04/29/16 Cyclobenzaprine HCl [Flexeril] 5 mg PO TID PRN 05/29/16 Promethazine [Phenergan] 25 mg PO Q6H PRN 05/29/16 Nabumetone [Relafen] 750 mg PO BID #30 tablet 06/05/16 Oxycodone Immediate Release [Oxycodone Immediate Release (OxyIR)] 5 mg PO Q6H PRN #30 tab 06/05/16 Loperamide HCl [Loperamide] 4 mg PO Q4H PRN 07/14/16 Lorazepam 0.5 mg PO QHS 07/14/16 Ondansetron [Ondansetron Odt] 8 mg PO TID 07/14/16 Polyethylene Glycol 3350 [Miralax] 17 gm PO DAILY PRN 07/14/16 Pravastatin Sodium [Pravachol] 20 mg PO QHS 07/14/16 Ranitidine HCl 300 mg PO DAILY 07/14/16 - Social History Lives: With Family Smoking Status: Never smoker Social History: Denies: Substance Use Disorder - Family History Reports: No Significant History, Hypertension, Diabetes, Stroke. Denies: Cancer - Review of Systems Neurological: negative: Numbness, Tingling Musculoskeletal:: negative: Joint Swelling - Physical Exam Vital Signs: Initial Vitals Temperature 100.3 F 07/14/16 16:07 Pulse Rate 121 H 07/14/16 16:07 Respiratory Rate 22 07/14/16 16:07 Blood Pressure 113/55 L 07/14/16 16:07 Pulse Oxygen Saturation 96 07/14/16 16:07 Constitutional: No apparent distress, Alert Oriented to: Time, Person, Place - Musculoskeletal Extremities: Other (FROM at bilateral hip joints and knee joints. No tenderness to palpation over the hip bursa. No tenderness along left knee joint line. SILT bilaterally. Pedal pulses equal bilaterally. 4+/5 LE strength.) - Diagnostic Findings EXAM: LEFT KNEE - COMPLETE 4+ VIEW COMPARISON: Left femur 07/15/2016 FINDINGS: Four views of the left knee submitted. No acute fracture or subluxation. Mild narrowing of medial joint compartment. Mild chondrocalcinosis. There is diffuse osteopenia. Mild spurring of patella. Narrowing of patellofemoral joint space. IMPRESSION: No acute fracture or subluxation. Diffuse osteopenia. Mild degenerative changes. Mild chondrocalcinosis. EXAM: LEFT FEMUR - 2 VIEW COMPARISON: 05/20/2016 FINDINGS: No acute fracture. No destructive bone lesion. Unremarkable soft tissues. IMPRESSION: No acute bony pathology. EXAM: BILATERAL HIP (WITH PELVIS) 4+ VIEW COMPARISON: 05/20/2016 and prior exams FINDINGS: Healing of the right pubic rami are again identified. The medial right superior pubic ramus fracture may extend into the right acetabulum. Bilateral sacroplasty changes are noted. There is no evidence of acute fracture, subluxation or dislocation. No focal bony lesions are identified. IMPRESSION: No evidence of acute abnormality. Right pubic fractures and bilateral sacral plasties identified. The medial right superior pubic ramus fracture may extend into the right acetabulum. Consider further evaluation as clinically indicated. - Assessment/Plan (1) Altered gait R26.9 - UNSPECIFIED ABNORMALITIES OF GAIT AND MOBILITY Acute Present on Admission: Yes Comment: Normal exam of bilateral hips. Based on history, this is most consistent with aggravated knee arthritis. I have talked to Dr Benites in regards to xrays and PE findings. We will order PT with hinged knee brace for stability. Follow up with Dr Benites after discharge for probable cortisone injection. (2) Knee pain, acute M25.569 - PAIN IN UNSPECIFIED KNEE Acute Present on Admission: Yes left M25.562 - Pain in left knee Case Care Discussed with: Patient, Consultants, Physical Therapy
--- NOTE | 2016-07-16 12:53 | DIRPT ---
CLINICAL DATA: Left knee pain, no known injury EXAM: LEFT KNEE - COMPLETE 4+ VIEW COMPARISON: Left femur 07/15/2016 FINDINGS: Four views of the left knee submitted. No acute fracture or subluxation. Mild narrowing of medial joint compartment. Mild chondrocalcinosis. There is diffuse osteopenia. Mild spurring of patella. Narrowing of patellofemoral joint space. IMPRESSION: No acute fracture or subluxation. Diffuse osteopenia. Mild degenerative changes. Mild chondrocalcinosis. Electronically Signed By: Juan Jose Dorman M.D. On: 07/16/2016 12:50
--- NOTE | 2016-07-16 12:59 | DIRPT ---
CLINICAL DATA: Painful lump on left side of jaw/neck anterior to the left ear. Possible parotitis. EXAM: CT NECK WITH CONTRAST TECHNIQUE: Multidetector CT imaging of the neck was performed using the standard protocol following the bolus administration of intravenous contrast. CONTRAST: 100 mL Isovue 370 COMPARISON: None. FINDINGS: Pharynx and larynx: The nasopharynx, oropharynx, hypopharynx, and larynx are unremarkable. Salivary glands: The right submandibular gland and right parotid gland are unremarkable. There is asymmetric enlargement and increased enhancement of the left parotid gland with moderate inflammatory stranding in the overlying fat extending into the left upper neck. Inflammatory stranding also extends to the posterior and lateral margins of the left submandibular gland no definite primary abnormality is identified of the left submandibular gland, although mild edema in the gland is not excluded. No organized fluid collection. No salivary stones are identified. There is asymmetric hyperenhancing, mildly nodular and somewhat ill-defined soft tissue in the right floor of mouth measuring 1.5-2 cm (series 2, image 41 and series 301, image 23) without evidence of significant surrounding inflammatory change. Thyroid: A few subcentimeter hypoattenuating nodules noted in the right thyroid lobe. Lymph nodes: A few subcentimeter lymph nodes in left levels II and III are likely reactive. Vascular: Major vascular structures of the neck appear patent. Partially retropharyngeal course of the common carotid and proximal internal carotid arteries. Limited intracranial: The visualized portion of the brain is unremarkable. Visualized orbits: Prior right cataract extraction. Mastoids and visualized paranasal sinuses: Clear. Skeleton: [id number] cervical disc and facet degeneration. Upper chest: Filling defects consistent with pulmonary emboli are partially visualized in the distal left main and proximal left lower lobe pulmonary arteries. Motion artifact with dependent subsegmental atelectasis in the upper lungs. Small left pleural effusion partially visualized. IMPRESSION: 1. Partially visualized left-sided pulmonary emboli. 2. Inflammatory changes involving the left parotid gland consistent with parotitis. 3. 1.5-2 cm focus of enhancing soft tissue in the right floor of mouth, indeterminate. Sublingual gland sailadenitis would be a consideration, however no significant surrounding inflammatory change is seen. Follow-up neck CT is suggested in 3-6 months to assess for resolution and exclude an underlying neoplasm. 4. Small left pleural effusion. Critical Value/emergent results were called by telephone at the time of interpretation on 07/16/2016 at 12:[address] TOI MENDOZA, who verbally acknowledged these results. Electronically Signed By: Clemente Brooks M.D. On: 07/16/2016 12:56
[2016-07-16] MEDS: MAGIC MOUTHWASH 180 ML ORAL SUSP PO SCH ×4 (13:28→20:25)
[2016-07-16] MEDS: NYSTATIN ORAL SUSP 5 ML PO SCH ×4 (13:29→19:48)
[2016-07-16] MEDS: ENOXAPARIN 80 MG/0.8 ML PFS SQ SCH (13:58)
[2016-07-16] MEDS: FLUCONAZOLE 100 MG TAB PO SCH (13:59)
[2016-07-16] MEDS: NS 1,000 ML IV SCH (13:59)
[2016-07-16] MEDS: AMPICILLIN-SULBACTAM 3 GM in NS 100 ML IV SCH ×2 (13:59→20:28)
[2016-07-16] MEDS: OXYCODONE HCL 5 MG TABLET PO PRN (14:08)
--- NOTE | 2016-07-16 16:06 | GENMEDPROG ---
Subjective Note: Patient feels weak complains of difficulty walking and pain in the legs. She had a recent procedure in May and I have consulted Orthopedics to further evaluate that. She also complains of a swelling on the left side of her face looks like a parotitis. A CT scan of the neck was obtained this morning. Notes Reviewed: Yes Events from last night noted and discussed with Clinical Staff Current Medication List: Reviewed Currently: Denies: Sputum, Nausea and Vomiting, Ambulating DVT Prophylaxis: Yes - Physical Examination Vital Signs and I&O: Last Vital Signs Temp 97.5 F 07/16/16 11:48 Pulse 96 07/16/16 11:48 Resp 18 07/16/16 11:48 BP 134/77 07/16/16 11:48 Pulse Ox 98 07/16/16 11:48 Oxygen Pulse Oxygen Saturation 98 O2 Device Room Air Oxygen Flow Rate 2 Fraction of Inspired Oxygen ( FIO2) Intake & Output 07/13/16 07/14/16 07/15/16 07/16/16 23:59 23:59 23:59 23:59 Intake Total 3780 766 4901 Output Total 1050 200 Balance 1000 -554 840 Patient's weight 68.765 kg 69.626 kg 70.035 kg General: Alert, Oriented x3, No acute distress, Well appearing, Well nourished HEENT: Normal (Normocephalic, atraumatic;EOMI.Sclera white, Nares patent, without discharge or bleeding. No oropharyngeal lesions or erythema. Mucous membranes are dry.), Other (Swelling of the left parotid gland) Neck: Non-tender, Normal Trachea alignment, Normal inspection (No cervical lymphadenopathy. No supraclavicular lymphadenopathy.), No Masses palpable, Limited range of motion Lymphatics: Normal (No lymph node swelling or pain.) Respiratory: Normal - CTA (Clear to auscultation bilaterally, no wheezing,rales or rhonchi. No use of accessory muscles) Cardiovascular: Regular rate and rhythm (No bradycardia or tachycardia), Normal S1, No Gallops,Rubs/Murmurs, Normal S2, Good Pedal Pulses (DP pulses 2+ bilaterally) GI: Normal bowel sounds (normal active sounds), Soft (non-distended), Non tender , No hepatospenomegaly, No masses Extremities/Musculoskeletal: Normal pulses (DP pulses 2+ bilaterally) Skin: Warm,Dry and Intact, No rashes, No significant lesion Neurological: Normal tone, Cranial nerves 3-12 NL ( 2-12 grossly intact.) Psych/Mental Status: Appropriate, Normal Affect Lab/DI/Studies Reviewed: LEFT KNEE - COMPLETE 4+ VIEW COMPARISON: Left femur 07/15/2016 FINDINGS: Four views of the left knee submitted. No acute fracture or subluxation. Mild narrowing of medial joint compartment. Mild chondrocalcinosis. There is diffuse osteopenia. Mild spurring of patella. Narrowing of patellofemoral joint space. IMPRESSION: No acute fracture or subluxation. Diffuse osteopenia. Mild degenerative changes. Mild chondrocalcinosis. Electronically Signed By: Juan Jose Dorman M.D. On: 07/16/2016 12:50 CT scan of the neck: IMPRESSION: 1. Partially visualized left-sided pulmonary emboli. 2. Inflammatory changes involving the left parotid gland consistent with parotitis. 3. 1.5-2 cm focus of enhancing soft tissue in the right floor of mouth, indeterminate. Sublingual gland sailadenitis would be a consideration, however no significant surrounding inflammatory change is seen. Follow-up neck CT is suggested in 3-6 months to assess for resolution and exclude an underlying neoplasm. 4. Small left pleural effusion. Critical Value/emergent results were called by telephone at the time of interpretation on 07/16/2016 at 12:[address] TOI MENDOZA, who verbally acknowledged these results. Electronically Signed By: Clemente Brooks M.D. On: 07/16/2016 12:56 Laboratory Tests 07/15/16 12:20 Ur Random Microalbumin 4.3 - Assessment (1) Pulmonary emboli Acute I26.99 - OTHER PULMONARY EMBOLISM WITHOUT ACUTE COR PULMONALE Qualifiers: Pulmonary embolism type: P Chronicity: acute Acute cor pulmonale presence : A Comment/Plan: Patient with acute emboli in her lungs. She is unable to undergo a CTA of her chest today because she had had a dye load with the neck CT. There form starting normal saline at 1:25 a.m. an hour. Will check CTA of the chest in the a.m.. In the meantime to determine if she is heart strain will check an echocardiogram. (2) Acute suppurative parotitis Acute K11.21 - ACUTE SIALOADENITIS Comment/Plan: Started vancomycin and Unasyn. Check respiratory tract MRSA. (3) Acute GI bleeding Acute K92.2 - GASTROINTESTINAL HEMORRHAGE, UNSPECIFIED Comment/Plan: Patient underwent EGD and was found to have some areas in the esophagus with bleeding. But no big ulcers or other issues. (4) Acute post-hemorrhagic anemia Acute D62 - ACUTE POSTHEMORRHAGIC ANEMIA Comment/Plan: Monitor H&H. Likely resolved. (5) Hyperglycemia Acute R73.9 - HYPERGLYCEMIA, UNSPECIFIED Comment/Plan: Fingerstick blood glucoses have stabilized. Hemoglobin A1c is acceptable. (6) Hypertension Chronic I10 - ESSENTIAL (PRIMARY) HYPERTENSION Qualifiers: Hypertension type: essential hypertension Qualified Code(s): I10 - Essential (primary) hypertension Comment/Plan: Continue home medications, but hold Arb in order to avoid hypotension this woman with upper GI bleed. - Plan Check CTA of chest in a.m. start enoxaparin q.12 hours, begin vancomycin and Unasyn for parotitis. Continue to monitor situation closely. Disposition Plan: Hopefully home soon Case Care Discussed with: Patient, Consultants (Dr. Pat), Family, Nursing Staff Education/Counseling Given To: Patient, Family Member Education/Counseling Given Regarding: Diagnosis, Treatment, Prognosis, Follow Up , Disposition Plan Total Time: 45 minutes Critical Care: No Couseling Time (>50% in counseling/coordination): No
--- NOTE | 2016-07-16 16:10 | CAPUECHO ---
INDICATION: PE R/O RIGHT HEART STRAIN HEIGHT: 157.5 cm (5 ft 2.0 in) WEIGHT: 69.8 kg (154.0 lbs) BP: 134/77 BSA: 1.293072 m MEASUREMENTS 2D RVIDd: 2.4 cm LVOT Diam: 2.1 cm LA Diam: 3.0 cm EF Biplane: 63.88 % LAESV MOD A4C: 42.4 ml LAESV MOD A2C: 40.2 ml LAESV Index (A-L): 27.39 ml/m M-MODE IVSd: 0.8 cm LVIDd: 4.9 cm LVPWd: 1.0 cm LVIDs: 3.3 cm EF(Teich): 61 % Ao Diam: 3.3 cm LA Diam: 3.3 cm DOPPLER MV E Dwight: 0.81 m/s MV A Dwight: 1.49 m/s MV PHT: 25.62 ms MVA By PHT: 8.59 cm LVOT Vmax: 1.39 m/s AV Vmax: 1.59 m/s DEMETRIUS Vmax, Pt: 2.98 cm TR Vmax: 2.68 m/s TR maxP mmHg RVSP: 40.70 mmHg FINDINGS ------- Procedure:2D images, m-mode, color and spectral Doppler were obtained and reviewed. ECG rhythm:Resting tachycardia (HR>100bpm). Study quality:This was a technically difficult study with suboptimal views. Left Ventricle:The left ventricular size is normal. Left ventricular wall thickness is normal. T here is normal global left ventricular contractility. Overall left ventricular systolic function i s normal with, an EF between 60 - 65 %. The diastolic filling pattern indicates impaired relaxatio n. Right Ventricle:The right ventricle is normal in size and function. Left Atrium:The left atrium is normal in size. Right Atrium:The right atrium is normal in size and function. Aortic Valve:The aortic valve is trileaflet and appears structurally normal. There is mild aortic valve sclerosis. Mitral Valve:Normal appearing mitral valve. There is trace mitral regurgitation. Tricuspid Valve:The tricuspid valve appears structurally normal. Mild tricuspid regurgitation pres ent. The right ventricular systolic pressure, as measured by Doppler, is 41mmHg. Pulmonic Valve:The pulmonic valve is normal. There is no pulmonic regurgitation present. Aorta:The aortic root, ascending aorta and aortic arch appear TDS. IVC:Normal inferior vena cava with normal inspiratory collapse. Subcostal views TDS. Pericardium:Echo free space may represent effusion or a pericardial fat pad. CONCLUSIONS 1. This was a technically difficult study with suboptimal views. 2. Overall left ventricular systolic function is normal with, an EF between 60 - 65 %. 3. The diastolic filling pattern indicates impaired relaxation. 4. The right ventricle is normal in size and function. 5. The left atrium is normal in size. 6. The right atrium is normal in size and function. 7. There is trace mitral regurgitation. 8. Mild tricuspid regurgitation present. 9. The right ventricular systolic pressure, as measured by Doppler, is 41mmHg. Electronically Signed By: Jf Thomason MD -- Electronically Signed On: 16:06:26
[2016-07-16] MEDS: RANITIDINE 150 MG TAB PO SCH (19:47)
[2016-07-16] MEDS: PRAVASTATIN 20 MG TAB PO SCH (19:47)
[2016-07-16] MEDS: ACETAMINOPHEN 325 MG/TAB TABLET PO PRN (19:48)
[2016-07-16] MEDS: LORAZEPAM 0.5 MG TAB PO SCH (19:48)
[2016-07-16] MEDS: PANTOPRAZOLE 40 MG VIAL IV SCH (20:24)
[2016-07-17] MEDS: ENOXAPARIN 80 MG/0.8 ML PFS SQ SCH ×2 (00:21→12:49)
[2016-07-17] MEDS: NS 1,000 ML IV SCH ×2 (00:21→16:31)
[2016-07-17] MEDS: AMPICILLIN-SULBACTAM 3 GM in NS 100 ML IV SCH ×4 (02:20→21:02)
[2016-07-17] MEDS: ACETAMINOPHEN 325 MG/TAB TABLET PO PRN (04:40)
[2016-07-17] MEDS: OXYCODONE HCL 5 MG TABLET PO PRN (04:40)
[2016-07-17 05:41] LABS: MPV 8.3 fL (7.4-10.4)
[2016-07-17 05:57] LABS: BLOOD UREA NITROGEN 16 MG/DL (7-17); CALCIUM 7.4 MG/DL (8.4-10.2); CALCULATED OSMOLALITY 263 MOs/Kg (270-290); CHLORIDE 104 mEq/L (98-107); GLUCOSE 106 MG/DL (70-99); SODIUM LEVEL 136 mEq/L (137-146)
[2016-07-17] MEDS ORDERED: Magnesium Sulfate 1 gm/D5W 1 GM/100 ML RTU IV ONE (06:50)
[2016-07-17] MEDS: REGULAR INSULIN 100 UNITS/ML - 3 ML VIAL SQ SCH ×4 (07:42→21:03)
[2016-07-17] MEDS ORDERED: FENTANYL 25 MCG PATCH TOP SCH (10:00)
[2016-07-17] MEDS: Magnesium Sulfate 1 gm/D5W 1 GM/100 ML RTU IV SCH ×2 (10:49→12:53)
[2016-07-17] MEDS: NYSTATIN ORAL SUSP 5 ML PO SCH ×4 (10:52→21:02)
--- NOTE | 2016-07-17 10:53 | DIRPT ---
CLINICAL DATA: Pulmonary embolus seen on yesterday CT scan of the neck EXAM: CT ANGIOGRAPHY CHEST WITH CONTRAST TECHNIQUE: Multidetector CT imaging of the chest was performed using the standard protocol during bolus administration of intravenous contrast. Multiplanar CT image reconstructions and MIPs were obtained to evaluate the vascular anatomy. CONTRAST: 80 cc Isovue COMPARISON: CT of the neck 07/16/2016 and MRI of thoracic spine 06/02/2016. FINDINGS: Images of the thoracic inlet are unremarkable. Central airways are patent. Atherosclerotic calcifications of thoracic aorta and coronary arteries. Heart size within normal limits. There is no evidence of right heart strain. The right ventricular of the left ventricle ratio is 0.95. As noted on yesterday CT scan there is pulmonary embolus in left main pulmonary artery extending in left lower lobe branch. The thrombus is nonocclusive. Some thrombus is noted in 2 segmental branches in left lower lobe. There is also thrombus noted in 1 segmental branch in right lower lobe please see axial image 107. There is bilateral small pleural effusion. Small atelectasis or infiltrate is noted bilateral lower lobe posteriorly left greater than right. A small bilateral hilar lymph nodes are noted not pathologic by size criteria. The visualized upper abdomen is unremarkable. Sagittal images of the spine shows degenerative changes thoracic spine. Again noted moderate compression fracture lower endplate of T9 vertebral body without change from prior exam. Schmorl's node deformity upper endplate of T10 vertebral body is stable. Review of the MIP images confirms the above findings. IMPRESSION: 1. Bilateral lower lobe positive pulmonary emboli as described above. The thrombi appears nonocclusive. 2. No significant right heart strain. The right ventricle over left ventricle ratio is 0.95. 3. Bilateral small pleural effusion. Bilateral lower lobe atelectasis or infiltrate left greater than right. 4. Stable compression deformity lower endplate of T9 vertebral body. 5. Atherosclerotic calcifications of thoracic aorta and coronary arteries. These results were called by telephone at the time of interpretation on 07/17/2016 at 10:[address] TOI MENDOZA MD, who verbally acknowledged these results. Electronically Signed By: Juan Jose Dorman M.D. On: 07/17/2016 10:51
[2016-07-17] MEDS: MAGIC MOUTHWASH 180 ML ORAL SUSP PO SCH ×4 (10:54→21:02)
[2016-07-17] MEDS: FLUCONAZOLE 100 MG TAB PO SCH (10:55)
--- NOTE | 2016-07-17 14:23 | PCM.GIPROG ---
Progress Note (GI) Chief Complaint: Ms. Pate is 81-year-old female with recent history complicated by pelvic fracture limited ambulation who developed more generalized weakness and decreased ambulatory ability. On arrival to the emergency room she was found to be severely anemic. Upper endoscopy 07-10 revealed mild erosive gastritis and esophagitis Ms. Pate has tolerated her diet well. She has had no further nausea emesis. She tolerated the transfusion of packed red blood cells well. Her hemoglobin is slightly lower today. She has had no bowel movements over the last 48 hours. Her oral ulcers or improving and less pain. She continues to have a tender left parotid area She does have evidence of a pulmonary embolus. This was documented on CT yesterday and a complete chest CT today confirm this diagnosis. - Physical Exam Vital Signs: Temperature: 97.7 F (07/17/16 11:24) HR: 82 (07/17/16 11:53) RR: 20 (07/17/16 11:24) BP: 128/68 (07/17/16 11:24) Pulse Ox: 96 (07/17/16 11:24) General: Alert, Oriented x3, No acute distress HEENT: negative: Icteric Sclera Respiratory: negative: Accessory Muscle Use Gastrointestinal: Soft Skin: Warm,Dry and Intact Neurological: Normal speech Psych/Mental Status: Appropriate Result Diagrams: 07/17/16 04:35 07/17/16 04:35 Additional Lab/DI Findings: Laboratory Tests 07/15/16 07/15/16 07/16/16 04:50 22:10 04:35 Hgb 7.1 L 8.7 L D 10.0 L D - Impression and Plan (1) Acute GI bleeding Acute K92.2 - GASTROINTESTINAL HEMORRHAGE, UNSPECIFIED Comment: Patient underwent EGD and was found to have some areas in the esophagus with bleeding. But no big ulcers or other issues. (2) Stomatitis Acute K12.1 - OTHER FORMS OF STOMATITIS (3) Nausea & vomiting Acute R11.2 - NAUSEA WITH VOMITING, UNSPECIFIED V V (4) Constipation Acute K59.00 - CONSTIPATION, UNSPECIFIED C (5) Physical deconditioning Acute R53.81 - OTHER MALAISE Comment: PTOT consulted. (6) Sacral fracture, closed Acute S32.10XA - UNSP FRACTURE OF SACRUM, INIT ENCNTR FOR CLOSED FRACTURE initial encounter unspecified portion of sacrum F F F S32.10XA - Unspecified fracture of sacrum, initial encounter for closed fracture Comment: . (7) Vertebral compression fracture Acute M48.50XA - COLLAPSED VERTEBRA, NEC, SITE UNSP, INIT initial encounter F M48.50XA - Collapsed vertebra, not elsewhere classified, site unspecified, initial encounter for fracture (8) Hypertension Chronic I10 - ESSENTIAL (PRIMARY) HYPERTENSION essential hypertension I10 - Essential (primary) hypertension (9) Pulmonary emboli Acute I26.99 - OTHER PULMONARY EMBOLISM WITHOUT ACUTE COR PULMONALE P acute A Plan: 1. Continue care for multiple medical problems 2. Continue care for newly documented PE 3. Ppi therapy aggressively if anticoagulation is used 4. Monitor hemoglobin closely 5. I will continue to follow with you
[2016-07-17] MEDS ORDERED: Magnesium Sulfate 2 gm/D5W 2 GM/50 ML RTU IV ONE (17:13)
--- NOTE | 2016-07-17 17:18 | GENMEDPROG ---
Subjective Note: Patient has become very complicated very quickly. She presented with acute anemia and upper GI bleeding and was found to have some erosive gastritis and esophagitis. She developed a parotitis and a CT scan of the neck was suspicious for pulmonary emboli. CTA of the chest confirmed pulmonary emboli. And the patient is now on proton pump inhibitor twice daily Unasyn for parotitis and vancomycin, and anticoagulation for pulmonary embolism. She is feeling some better today she feels like the lump on the side of her face is getting better. Notes Reviewed: Yes Events from last night noted and discussed with Clinical Staff Current Medication List: Reviewed Currently: Denies: Sputum, Nausea and Vomiting, Ambulating DVT Prophylaxis: Yes - Physical Examination Vital Signs and I&O: Last Vital Signs Temp 98.0 F 07/17/16 16:02 Pulse 90 07/17/16 16:02 Resp 18 07/17/16 16:02 BP 134/64 07/17/16 16:02 Pulse Ox 99 07/17/16 16:02 Oxygen Pulse Oxygen Saturation 99 O2 Device Room Air Oxygen Flow Rate 2 Fraction of Inspired Oxygen ( FIO2) Intake & Output 07/14/16 07/15/16 07/16/16 07/17/16 23:59 23:59 23:59 23:59 Intake Total 4366 024 4208 1624 Output Total 1050 200 750 Balance 1000 -554 1938 874 Patient's weight 68.765 kg 69.626 kg 70.035 kg 68.81 kg General: Alert, Oriented x3, No acute distress HEENT: Normal (Normocephalic, atraumatic;EOMI.Sclera white, Nares patent, without discharge or bleeding. No oropharyngeal lesions or erythema. Mucous membranes are dry.) Neck: Non-tender, Full range of motion, Normal Trachea alignment, Normal inspection (No cervical lymphadenopathy. No supraclavicular lymphadenopathy.), No Masses palpable, Supple Lymphatics: Normal (No lymph node swelling or pain.) Respiratory: negative: Accessory Muscle Use Cardiovascular: Regular rate and rhythm (No bradycardia or tachycardia), Normal S1, No Gallops,Rubs/Murmurs, Normal S2, Good Pedal Pulses (DP pulses 2+ bilaterally) GI: Normal bowel sounds (normal active sounds), Soft (non-distended), Non tender , No hepatospenomegaly, No masses Extremities/Musculoskeletal: Normal pulses (DP pulses 2+ bilaterally) Skin: Warm,Dry and Intact Neurological: Strength at 5/5 X4 ext (Motor 5/5 throughout.), Normal tone, Cranial nerves 3-12 NL ( 2-12 grossly intact.) Lab/DI/Studies Reviewed: Abnormal Lab Results 07/16/16 07/16/16 07/17/16 16:07 19:57 04:31 RBC Hgb Hct MCHC RDW Sodium Glucose POC Capillary Glucose 204 H 141 H 115 H Calculated Osmolality Calcium Magnesium 07/17/16 07/17/16 07/17/16 04:35 04:35 10:55 RBC 3.14 L Hgb 8.7 L D Hct 26.8 L MCHC 32.3 L RDW 20.2 H Sodium 136 L Glucose 106 H POC Capillary Glucose 116 H Calculated Osmolality 263 L Calcium 7.4 L Magnesium 1.20 L Echocardiogram: CONCLUSIONS 1. This was a technically difficult study with suboptimal views. 2. Overall left ventricular systolic function is normal with, an EF between 60 - 65 %. 3. The diastolic filling pattern indicates impaired relaxation. 4. The right ventricle is normal in size and function. 5. The left atrium is normal in size. 6. The right atrium is normal in size and function. 7. There is trace mitral regurgitation. 8. Mild tricuspid regurgitation present. 9. The right ventricular systolic pressure, as measured by Doppler, is 41mmHg. Electronically Signed By: Jf Thomason MD -- Electronically Signed On: 16:06:[address] scan: IMPRESSION: 1. Partially visualized left-sided pulmonary emboli. 2. Inflammatory changes involving the left parotid gland consistent with parotitis. 3. 1.5-2 cm focus of enhancing soft tissue in the right floor of mouth, indeterminate. Sublingual gland sailadenitis would be a consideration, however no significant surrounding inflammatory change is seen. Follow-up neck CT is suggested in 3-6 months to assess for resolution and exclude an underlying neoplasm. 4. Small left pleural effusion. Critical Value/emergent results were called by telephone at the time of interpretation on 07/16/2016 at 12:[address] TOI MENDOZA, who verbally acknowledged these results. Electronically Signed By: Clemente Brooks M.D. On: 07/16/2016 12:56 X-rays of knee: LEFT KNEE - COMPLETE 4+ VIEW COMPARISON: Left femur 07/15/2016 FINDINGS: Four views of the left knee submitted. No acute fracture or subluxation. Mild narrowing of medial joint compartment. Mild chondrocalcinosis. There is diffuse osteopenia. Mild spurring of patella. Narrowing of patellofemoral joint space. IMPRESSION: No acute fracture or subluxation. Diffuse osteopenia. Mild degenerative changes. Mild chondrocalcinosis. Electronically Signed By: Juan Jose Dorman M.D. On: 07/16/2016 12:50 EXAM: CT ANGIOGRAPHY CHEST WITH CONTRAST TECHNIQUE: Multidetector CT imaging of the chest was performed using the standard protocol during bolus administration of intravenous contrast. Multiplanar CT image reconstructions and MIPs were obtained to evaluate the vascular anatomy. CONTRAST: 80 cc Isovue COMPARISON: CT of the neck 07/16/2016 and MRI of thoracic spine 06/02/2016. FINDINGS: Images of the thoracic inlet are unremarkable. Central airways are patent. Atherosclerotic calcifications of thoracic aorta and coronary arteries. Heart size within normal limits. There is no evidence of right heart strain. The right ventricular of the left ventricle ratio is 0.95. As noted on yesterday CT scan there is pulmonary embolus in left main pulmonary artery extending in left lower lobe branch. The thrombus is nonocclusive. Some thrombus is noted in 2 segmental branches in left lower lobe. There is also thrombus noted in 1 segmental branch in right lower lobe please see axial image 107. There is bilateral small pleural effusion. Small atelectasis or infiltrate is noted bilateral lower lobe posteriorly left greater than right. A small bilateral hilar lymph nodes are noted not pathologic by size criteria. The visualized upper abdomen is unremarkable. Sagittal images of the spine shows degenerative changes thoracic spine. Again noted moderate compression fracture lower endplate of T9 vertebral body without change from prior exam. Schmorl's node deformity upper endplate of T10 vertebral body is stable. Review of the MIP images confirms the above findings. IMPRESSION: 1. Bilateral lower lobe positive pulmonary emboli as described above. The thrombi appears nonocclusive. 2. No significant right heart strain. The right ventricle over left ventricle ratio is 0.95. 3. Bilateral small pleural effusion. Bilateral lower lobe atelectasis or infiltrate left greater than right. 4. Stable compression deformity lower endplate of T9 vertebral body. 5. Atherosclerotic calcifications of thoracic aorta and coronary arteries. These results were called by telephone at the time of interpretation on 07/17/2016 at 10:[address] TOI MENDOZA MD, who verbally acknowledged these results. Electronically Signed By: Juan Jose Dorman M.D. On: 07/17/2016 10:51 - Assessment (1) Pulmonary emboli Acute I26.99 - OTHER PULMONARY EMBOLISM WITHOUT ACUTE COR PULMONALE Qualifiers: Pulmonary embolism type: P Chronicity: acute Acute cor pulmonale presence : without acute cor pulmonale Comment/Plan: Continue treat Lovenox will switch to novel anticoagulants in the next 24-48 hours. (2) Acute suppurative parotitis Acute K11.21 - ACUTE SIALOADENITIS Comment/Plan: Started vancomycin and Unasyn. Respiratory tract MRSA positive therefore patient will need 7 day treatment with vancomycin. Continue Unasyn. (3) Acute GI bleeding Acute K92.2 - GASTROINTESTINAL HEMORRHAGE, UNSPECIFIED Comment/Plan: Continue current plan have increased PPI to twice daily and switched to oral. This is especially important given pulmonary embolus. (4) Acute post-hemorrhagic anemia Acute D62 - ACUTE POSTHEMORRHAGIC ANEMIA Comment/Plan: Monitor H&H. Likely resolved. (5) Hyperglycemia Acute R73.9 - HYPERGLYCEMIA, UNSPECIFIED Comment/Plan: Fingerstick blood glucoses have stabilized. Hemoglobin A1c is acceptable. (6) Hypertension Chronic I10 - ESSENTIAL (PRIMARY) HYPERTENSION Qualifiers: Hypertension type: essential hypertension Qualified Code(s): I10 - Essential (primary) hypertension (7) Altered gait Acute R26.9 - UNSPECIFIED ABNORMALITIES OF GAIT AND MOBILITY Comment/Plan: Orthopedics help very much appreciated. Will set patient up for appointment with Dr. Benites at discharge for possible injection however will need to be very mindful given anticoagulation. - Plan Continue present very complicated care. Apparently patient has used up all of her [facility] days and will be unable to return to a nursing facility. She plans to go home which I think will be a very difficult situation for her and her caretakers. Disposition Plan: Hopefully home soon Case Care Discussed with: Patient, Consultants, Nursing Staff Education/Counseling Given To: Patient Education/Counseling Given Regarding: Diagnosis, Treatment, Prognosis, Follow Up , Disposition Plan Total Time: 45 minutes. Critical Care: No Couseling Time (>50% in counseling/coordination): No
[2016-07-17] MEDS: MAGNESIUM OXIDE 400 MG TAB PO SCH (17:56)
[2016-07-17] MEDS: PANTOPRAZOLE 40 MG TAB PO SCH (17:57)
[2016-07-17] MEDS: RANITIDINE 150 MG TAB PO SCH (21:02)
[2016-07-17] MEDS: LORAZEPAM 0.5 MG TAB PO SCH (21:02)
[2016-07-17] MEDS: PRAVASTATIN 20 MG TAB PO SCH (21:02)
[2016-07-18] MEDS: ENOXAPARIN 80 MG/0.8 ML PFS SQ SCH ×2 (02:22→13:15)
[2016-07-18] MEDS: AMPICILLIN-SULBACTAM 3 GM in NS 100 ML IV SCH ×4 (02:22→21:09)
[2016-07-18 03:31] LABS: MPV 8.3 fL (7.4-10.4)
[2016-07-18 03:45] LABS: BLOOD UREA NITROGEN 13 MG/DL (7-17); CALCULATED OSMOLALITY 264 MOs/Kg (270-290); CHLORIDE 110 mEq/L (98-107); GLUCOSE 100 MG/DL (70-99); SODIUM LEVEL 137 mEq/L (137-146)
[2016-07-18 03:46] LABS: CALCIUM 7.5 MG/DL (8.4-10.2)
[2016-07-18] MEDS: REGULAR INSULIN 100 UNITS/ML - 3 ML VIAL SQ SCH ×4 (05:58→22:23)
[2016-07-18] MEDS: PANTOPRAZOLE 40 MG TAB PO SCH ×2 (06:01→15:22)
[2016-07-18] MEDS: NS 1,000 ML IV SCH ×3 (06:01→22:48)
[2016-07-18] MEDS: FLUCONAZOLE 100 MG TAB PO SCH (07:39)
[2016-07-18] MEDS: MAGNESIUM OXIDE 400 MG TAB PO SCH ×2 (07:39→11:12)
[2016-07-18] MEDS: NYSTATIN ORAL SUSP 5 ML PO SCH ×4 (07:39→21:10)
[2016-07-18] MEDS: ACETAMINOPHEN 325 MG/TAB TABLET PO PRN (07:40)
[2016-07-18] MEDS: MAGIC MOUTHWASH 180 ML ORAL SUSP PO SCH ×4 (07:40→21:10)
[2016-07-18] MEDS: OXYCODONE HCL 5 MG TABLET PO PRN (07:40)
--- NOTE | 2016-07-18 09:03 | PCM.GIPROG ---
Progress Note (GI) Chief Complaint: Ms. Pate is 81-year-old female with recent history complicated by pelvic fracture limited ambulation who developed more generalized weakness and decreased ambulatory ability. On arrival to the emergency room she was found to be severely anemic. Upper endoscopy 07-10 revealed mild erosive gastritis and esophagitis Ms. Pate continues to tolerate her diet well. She has had no further nausea emesis. She tolerated the transfusion of 1 unit packed red blood cells well. Her hemoglobin is slightly lower today. She has had no bowel movements since her admission . She continues to have a tender left parotid area but markedly improved. She is being seen by PT. She does have evidence of a pulmonary embolus. This has been documented on CT. - Physical Exam Vital Signs: Temperature: 97.8 F (07/18/16 07:23) HR: 97 (07/18/16 07:23) RR: 19 (07/18/16 07:23) BP: 156/87 (07/18/16 07:23) Pulse Ox: 98 (07/18/16 07:23) General: Alert, Oriented x3. negative: No acute distress HEENT: negative: Pallor Respiratory: negative: Accessory Muscle Use Gastrointestinal: Soft, Bowel Sounds. negative: Distended, Tender Extremities: negative: Edema Skin: Warm,Dry and Intact Neurological: Normal speech Psych/Mental Status: Appropriate Result Diagrams: 07/18/16 03:10 07/18/16 03:10 Additional Lab/DI Findings: Laboratory Tests 07/15/16 07/15/16 07/17/16 04:50 22:10 04:35 Hgb 7.1 L 8.7 L D 8.7 L D - Impression and Plan (1) Acute GI bleeding Acute K92.2 - GASTROINTESTINAL HEMORRHAGE, UNSPECIFIED Comment: PPI to twice daily and switched to oral. (2) Stomatitis Acute K12.1 - OTHER FORMS OF STOMATITIS (3) Nausea & vomiting Acute R11.2 - NAUSEA WITH VOMITING, UNSPECIFIED V V (4) Constipation Acute K59.00 - CONSTIPATION, UNSPECIFIED C (5) Physical deconditioning Acute R53.81 - OTHER MALAISE Comment: PTOT consulted. (6) Sacral fracture, closed Acute S32.10XA - UNSP FRACTURE OF SACRUM, INIT ENCNTR FOR CLOSED FRACTURE initial encounter unspecified portion of sacrum F F F S32.10XA - Unspecified fracture of sacrum, initial encounter for closed fracture Comment: . (7) Vertebral compression fracture Acute M48.50XA - COLLAPSED VERTEBRA, NEC, SITE UNSP, INIT initial encounter F M48.50XA - Collapsed vertebra, not elsewhere classified, site unspecified, initial encounter for fracture (8) Hypertension Chronic I10 - ESSENTIAL (PRIMARY) HYPERTENSION essential hypertension I10 - Essential (primary) hypertension (9) Pulmonary emboli Acute I26.99 - OTHER PULMONARY EMBOLISM WITHOUT ACUTE COR PULMONALE P acute without acute cor pulmonale Plan: 1. Continue care were multiple medical problems 2. Close monitoring of hemoglobin with a anticoagulation with PE 3. Ppi therapy 4. Laxatives for constipation 5. Transfuse as needed Case Care Discussed with: Other (Discussed with Dr. Olea the plan discussed with the patient)
[2016-07-18] MEDS ORDERED: BISACODYL 10 MG SUPP PR PRN (09:08)
[2016-07-18 09:56] LABS: % SATURATION 22.3 % (15-50)
[2016-07-18 10:54] LABS: FOLATES 8.91 ng/mL (>2.76)
[2016-07-18] MEDS: PEG-ELECTROLYTE 17 GM PACK PO SCH ×6 (11:12→21:11)
--- NOTE | 2016-07-18 11:26 | DIRPT ---
CLINICAL DATA: Evaluate for venous thrombosis. Leg pain. EXAM: BILATERAL LOWER EXTREMITY VENOUS DOPPLER ULTRASOUND TECHNIQUE: Jeffers-scale sonography with graded compression, as well as color Doppler and duplex ultrasound were performed to evaluate the lower extremity deep venous systems from the level of the common femoral vein and including the common femoral, femoral, profunda femoral, popliteal and calf veins including the posterior tibial, peroneal and gastrocnemius veins when visible. The superficial great saphenous vein was also interrogated. Spectral Doppler was utilized to evaluate flow at rest and with distal augmentation maneuvers in the common femoral, femoral and popliteal veins. COMPARISON: None. FINDINGS: RIGHT LOWER EXTREMITY Common Femoral Vein: No evidence of thrombus. Normal compressibility, respiratory phasicity and response to augmentation. Saphenofemoral Junction: No evidence of thrombus. Normal compressibility and flow on color Doppler imaging. Profunda Femoral Vein: No evidence of thrombus. Normal compressibility and flow on color Doppler imaging. Femoral Vein: thrombus within the right femoral vein from proximal to distal thigh. The Popliteal Vein: No evidence of thrombus. Normal compressibility, respiratory phasicity and response to augmentation. Calf Veins: No evidence of thrombus. Normal compressibility and flow on color Doppler imaging. Superficial Great Saphenous Vein: No evidence of thrombus. Normal compressibility and flow on color Doppler imaging. Venous Reflux: None. Other Findings: None. LEFT LOWER EXTREMITY Common Femoral Vein: Thrombus noted in the right common femoral vein. Vessel is noncompressible. Saphenofemoral Junction: No evidence of thrombus. Normal compressibility and flow on color Doppler imaging. Profunda Femoral Vein: Thrombus noted. Vessel is noncompressible. Femoral Vein: Thrombus noted from proximal to distal. The vessel is noncompressible. Popliteal Vein: Thrombus noted. The vessel is noncompressible. Calf Veins: No evidence of thrombus. Normal compressibility and flow on color Doppler imaging. Superficial Great Saphenous Vein: No evidence of thrombus. Normal compressibility and flow on color Doppler imaging. Venous Reflux: None. Other Findings: None. IMPRESSION: Bilateral lower extremity deep venous thrombosis, involving the right femoral vein and the common femoral through popliteal vein on the left. These results will be called to the ordering clinician or sales representative [employer] by the Radiologist Support Staff, and communication documented in the PACS or [email or web address] Dashboard. Electronically Signed By: Jessee Alonso M.D. On: 07/18/2016 11:24
--- NOTE | 2016-07-18 13:31 | PCM.SURGCO ---
Consultation Date: 07/18/16 Requesting Physician: Cheli Olea Aoc Director Combat Operations Officer: Yahir Cook Consult Reason: Other (DVT.) - History of Present Illness The patient is a very pleasant 81-year-old female who in May had fallen and had a pelvic fracture and had a sacroplasty. She had gone to [facility] and subsequently had gone home was at home when she had been getting progressive weakness. She had been worked up and found to have heme- positive stool and anemia and admitted the hospital for GI bleeding. She had undergone CT scanning and ultrasound that showed pulmonary emboli and deep venous thrombosis. Because of her gastrointestinal blood loss anemia and pulmonary emboli we have been asked to see her for inferior vena cava filter placement. She is comfortable in bed with no shortness of breath. I have explained the situation in detail and she understands everything. She has not seen any blood in her stool. She has undergone 1 transfusion of packed cells. She has had a appendectomy and hysterectomy. She had an EGD that showed erosive esophagitis and gastritis. She had a colonoscopy 6 years ago. - Past Medical and Surgical History Cardiac History: Reports: Hypertension, Hypercholesterolemia. Denies: Coronary Artery Disease, Atrial Fibrillation Respiratory History: Denies: Asthma, COPD GI/ History: Reports: Gastroesophageal Reflux, Diverticulosis Systemic History: Reports: Cancer (skin), Anemia Musculoskeletal History: Reports: Arthritis. Denies: Rheumatoid Arthritis, Other Psychological History: Reports: No Significant History. Denies: Depression, Anxiety, Substance Use Disorder Neurological History: Reports: No Significant History. Denies: Cerebrovascular Accident, Seizures Past Surgical History: Reports: Appendectomy, Hysterectomy (FULL) Allergies pollen extracts Allergy (Verified 05/29/16 12:04) See Comments SINUS PROBLEMS/WATERY EYES Home Medications Aspirin [Aspirin EC] 81 mg PO QHS 07/31/13 Calcium Carbonate + Vitamin D [Oscal with Vitamin D] 500 mg PO BID 07/31/13 Cholecalciferol (Vitamin D3) [Vitamin D] 1,000 unit PO DAILY 07/31/13 Losartan Potassium 100 mg PO DAILY 07/31/13 Liraglutide [Victoza 18 mg/3 ml Pen] 1.8 units SQ DAILY 08/08/14 Omeprazole 20 mg PO DAILY 08/08/14 Venlafaxine HCl ER [Effexor Xr] 75 mg PO DAILY PRN 04/29/16 Cyclobenzaprine HCl [Flexeril] 5 mg PO TID PRN 05/29/16 Promethazine [Phenergan] 25 mg PO Q6H PRN 05/29/16 Nabumetone [Relafen] 750 mg PO BID #30 tablet 06/05/16 Oxycodone Immediate Release [Oxycodone Immediate Release (OxyIR)] 5 mg PO Q6H PRN #30 tab 06/05/16 Loperamide HCl [Loperamide] 4 mg PO Q4H PRN 07/14/16 Lorazepam 0.5 mg PO QHS 07/14/16 Ondansetron [Ondansetron Odt] 8 mg PO TID 07/14/16 Polyethylene Glycol 3350 [Miralax] 17 gm PO DAILY PRN 07/14/16 Pravastatin Sodium [Pravachol] 20 mg PO QHS 07/14/16 Ranitidine HCl 300 mg PO DAILY 07/14/16 - Social History Travel Outside of [place] in the Last 3 Months?: No Lives: With Family Smoking Status: Never smoker Social History: Denies: Substance Use Disorder - Family History Reports: No Significant History, Hypertension, Diabetes, Stroke. Denies: Cancer - Review of Systems Constitutional: Weakness. negative: Chills, Fever Eyes: No Symptoms Reported. negative: Blurred Vision, Double Vision Ears: No Symptoms Reported. negative: Drainage, Hearing Loss Nose: No Symptoms Reported. negative: Abrasion, Bleeding Mouth: No Symptoms Reported. negative: Pain, Dry Mouth Throat/Neck: No Symptoms Reported. negative: Pain, Hoarseness Respiratory: No Symptoms Reported. negative: Cough, Sputum Cardiovascular: No Symptoms Reported. negative: Chest Pain, Palpitations Gastrointestinal: No Symptoms Reported. negative: Nausea, Vomiting, Abdominal Pain, Diarrhea, Melena, Hematochezia Genitourinary: No Symptoms Reported. negative: Bleeding, Dysuria Neurological: No Symptoms Reported. negative: Dizziness, Seizure Musculoskeletal:: Joint Pain (Leg pain), Muscle Pain Integumentary: No Symptoms Reported. negative: Bruising, Itching, Rash Allergic/Immunologic: No Symptoms Reported. negative: Hives, Itching Hematologic: No Symptoms Reported, Anemia. negative: Lymphadenopathy, Easy Bruising, Easy Bleeding Endocrine: No Symptoms Reported. negative: Weight Gain, Weight Loss Psychiatric: No Symptoms Reported. negative: Anxiety, Depression - Physical Exam Vital Signs: Initial Vitals Temperature 100.3 F 07/14/16 16:07 Pulse Rate 121 H 07/14/16 16:07 Respiratory Rate 22 07/14/16 16:07 Blood Pressure 113/55 L 07/14/16 16:07 Pulse Oxygen Saturation 96 07/14/16 16:07 Constitutional: No apparent distress, Alert Oriented to: Time, Person, Place - HEENT Head: Normal. negative: Laceration, Tender Eye: Normal. negative: Edema, Scleral Icterus Oropharynx: Normal. negative: Membranes Dry, Red ENT EAC: Normal. negative: Blood TMJ: Normal. negative: Crepitance, Tender Nose: No Symptoms Reported. negative: Abrasion, Bleeding Respiratory: Normal - CTA. negative: Accessory Muscle Use, Rhonchi Cardiovascular: Normal. negative: Bradycardia, Tachycardia, Irregular, Diastolic murmur, Systolic murmur - GI Auscultation: Normal. negative: Bruit Palpation: Normal. negative: Enlarged liver, Enlarged spleen Tenderness: Non tender. negative: Guarding, Rebound Soliz's Sign: Negative Rectal Exam: Deferred - Exam Deferred: Yes - Musculoskeletal Back: Normal. negative: Abrasion, Ecchymosis, CVA Tenderness Extremities: Normal. negative: Calf Tenderness, Clubbing, Cyanosis, Edema Spine: tenderness. negative: non-tender - Integumentary Skin: Normal. negative: Clammy, Diaphoretic Lymphatics: Normal. negative: Adenopathy, Tender - Neurologic Memory Impaired: Normal Motor Function: Normal Cranial Nerve: Normal Cerebellar: Normal Mood Description: Normal Thought: Coherent Perception: Normal - Lab Results 07/18/16 03:10 07/18/16 03:10 - Assessment/Plan (1) Acute GI bleeding K92.2 - GASTROINTESTINAL HEMORRHAGE, UNSPECIFIED Acute Comment: Patient worked up by Dr. Pat, treated for gastritis and esophagitis. Colonoscopy 7 years ago. Unable to anticoagulate because of this (2) Pulmonary emboli I26.99 - OTHER PULMONARY EMBOLISM WITHOUT ACUTE COR PULMONALE Acute P acute without acute cor pulmonale Comment: Unable to anticoagulate because of the gastrointestinal bleeding. I explained the risks and benefits of permanent inferior vena cava filter placement including the risk of migration and caval occlusion. She understood and agreed and will get this arranged for her at her convenience. (3) Acute bilateral deep vein thrombosis (DVT) of femoral veins I82.413 - ACUTE EMBOLISM AND THROMBOSIS OF FEMORAL VEIN, BILATERAL Acute Comment: Unable to anticoagulate for this. Will place inferior vena cava filter.
--- NOTE | 2016-07-18 14:08 | GENMEDPROG ---
Subjective Note: Patient with multiple competing in complicated problems. She was admitted with GI bleeding. Found to have gastric issues via EGD. She then developed a parotitis and during evaluation for the parotitis was noted to have pulmonary emboli. Bilateral lower extremity Dopplers were obtained and the patient has bilateral lower extremity deep venous thromboses. Notes Reviewed: Yes Events from last night noted and discussed with Clinical Staff Current Medication List: Reviewed Currently: Denies: Sputum, Nausea and Vomiting, Ambulating DVT Prophylaxis: Yes - Physical Examination Vital Signs and I&O: Last Vital Signs Temp 97.8 F 07/18/16 11:11 Pulse 94 07/18/16 11:30 Resp 18 07/18/16 11:11 BP 134/80 07/18/16 11:11 Pulse Ox 97 07/18/16 11:11 Oxygen Pulse Oxygen Saturation 97 O2 Device Room Air Oxygen Flow Rate 2 Fraction of Inspired Oxygen ( FIO2) Intake & Output 07/15/16 07/16/16 07/17/16 07/18/16 23:59 23:59 23:59 23:59 Intake Total 496 2138 3469 2429 Output Total 1129 067 2310 1550 Balance -554 1938 1219 879 Patient's weight 69.626 kg 70.035 kg 68.81 kg 68.521 kg General: Alert, Oriented x3. negative: No acute distress Neck: Non-tender, Full range of motion, Normal Trachea alignment, Normal inspection (No cervical lymphadenopathy. No supraclavicular lymphadenopathy.), No Masses palpable, Supple Lymphatics: Normal (No lymph node swelling or pain.) Respiratory: Normal - CTA. negative: Accessory Muscle Use Cardiovascular: Regular rate and rhythm (No bradycardia or tachycardia), Normal S1, No Gallops,Rubs/Murmurs, Normal S2, Good Pedal Pulses (DP pulses 2+ bilaterally) GI: Normal bowel sounds (normal active sounds), Soft (non-distended), Non tender , No hepatospenomegaly, No masses Extremities/Musculoskeletal: Normal pulses. negative: Edema Skin: Warm,Dry and Intact Lab/DI/Studies Reviewed: Bilateral lower extremity venous Dopplers: IMPRESSION: Bilateral lower extremity deep venous thrombosis, involving the right femoral vein and the common femoral through popliteal vein on the left. These results will be called to the ordering clinician or community representative by the Radiologist Supervisor [employer], and communication documented in the PACS or zVision Dashboard. Electronically Signed By: Jessee Alonso M.D. On: 07/18/2016 11:24 Abnormal Lab Results 07/14/16 07/17/16 07/17/16 17:17 17:05 19:51 RBC Hgb Hct MCHC RDW Chloride Glucose POC Capillary Glucose 153 H 197 H Calculated Osmolality Calcium Magnesium Iron TIBC Ferritin Vitamin B12 Crossmatch See Detail 07/17/16 07/18/16 07/18/16 23:20 03:10 03:10 RBC 2.89 L Hgb 8.0 L Hct 24.7 L MCHC 32.2 L RDW 20.6 H Chloride 110 H Glucose 100 H POC Capillary Glucose Calculated Osmolality 264 L Calcium 7.5 L Magnesium 2.90 H 2.50 H Iron TIBC Ferritin Vitamin B12 Crossmatch 07/18/16 07/18/16 07/18/16 03:10 05:29 11:27 RBC Hgb Hct MCHC RDW Chloride Glucose POC Capillary Glucose 119 H 147 H Calculated Osmolality Calcium Magnesium Iron 36.0 L TIBC 161 L Ferritin 707.0 H Vitamin B12 > 1000 H Crossmatch - Assessment (1) Pulmonary emboli Acute I26.99 - OTHER PULMONARY EMBOLISM WITHOUT ACUTE COR PULMONALE Qualifiers: Pulmonary embolism type: P Chronicity: acute Acute cor pulmonale presence : without acute cor pulmonale Comment/Plan: Patient will require 5 total days of anticoagulation. She cannot receive more than that given her GI bleeding in decrease in her hemoglobin. (2) Acute bilateral deep vein thrombosis (DVT) of femoral veins Acute I82.413 - ACUTE EMBOLISM AND THROMBOSIS OF FEMORAL VEIN, BILATERAL Comment/Plan: Patient will receive 5 days of anticoagulation and possibly have a filter placed. I have discussed the case with Dr. Cook who will see the patient today. Given patient's GI bleeding is is I do not think it is safe that she be anticoagulated at this point outside of of monitored situation (3) Acute suppurative parotitis Acute K11.21 - ACUTE SIALOADENITIS Comment/Plan: Started vancomycin and Unasyn. Respiratory tract MRSA positive therefore patient will need 7 day treatment with vancomycin. Continue Unasyn. This is day 3 of treatment (4) Acute GI bleeding Acute K92.2 - GASTROINTESTINAL HEMORRHAGE, UNSPECIFIED Comment/Plan: PPI to twice daily and switched to oral. (5) Acute post-hemorrhagic anemia Acute D62 - ACUTE POSTHEMORRHAGIC ANEMIA Comment/Plan: Hemoglobin continues to trend downward will continue checking daily. (6) Hyperglycemia Acute R73.9 - HYPERGLYCEMIA, UNSPECIFIED Comment/Plan: Fingerstick blood glucoses have stabilized. Hemoglobin A1c is acceptable. (7) Hypertension Chronic I10 - ESSENTIAL (PRIMARY) HYPERTENSION Qualifiers: Hypertension type: essential hypertension Qualified Code(s): I10 - Essential (primary) hypertension Comment/Plan: Continue home medication regimen (8) Altered gait Acute R26.9 - UNSPECIFIED ABNORMALITIES OF GAIT AND MOBILITY Comment/Plan: Orthopedics help very much appreciated. Will set patient up for appointment with Dr. Benites at discharge for possible injection however will need to be very mindful given anticoagulation. - Plan Continue present very complicated care. Apparently patient has used up all of her fdc days and will be unable to return to a nursing facility. She plans to go home which I think will be a very difficult situation for her and her caretakers. Disposition Plan: Hopefully home soon Case Care Discussed with: Patient, Consultants (Dr. Cook and Dr. Pat), Nursing Staff Education/Counseling Given To: Patient Education/Counseling Given Regarding: Diagnosis, Treatment, Prognosis, Follow Up , Disposition Plan Total Time: 45 minutes Critical Care: No Couseling Time (>50% in counseling/coordination): No
[2016-07-18] MEDS: RANITIDINE 150 MG TAB PO SCH (21:10)
[2016-07-18] MEDS: LORAZEPAM 0.5 MG TAB PO SCH (21:10)
[2016-07-18] MEDS: PRAVASTATIN 20 MG TAB PO SCH (21:10)
[2016-07-19] MEDS: ENOXAPARIN 80 MG/0.8 ML PFS SQ SCH (00:28)
[2016-07-19] MEDS: AMPICILLIN-SULBACTAM 3 GM in NS 100 ML IV SCH ×4 (00:29→19:47)
[2016-07-19] MEDS: OXYCODONE HCL 5 MG TABLET PO PRN ×2 (01:18→18:52)
[2016-07-19 04:20] LABS: BLOOD UREA NITROGEN 9 MG/DL (7-17); CALCIUM 7.9 MG/DL (8.4-10.2); CALCULATED OSMOLALITY 265 MOs/Kg (270-290); CHLORIDE 109 mEq/L (98-107); GLUCOSE 98 MG/DL (70-99); SODIUM LEVEL 138 mEq/L (137-146)
[2016-07-19] MEDS: REGULAR INSULIN 100 UNITS/ML - 3 ML VIAL SQ SCH ×4 (05:41→20:31)
[2016-07-19] MEDS: PANTOPRAZOLE 40 MG TAB PO SCH ×2 (06:05→17:11)
[2016-07-19] MEDS: NS 1,000 ML IV SCH ×3 (06:10→23:41)
[2016-07-19] MEDS ORDERED: DIPHENHYDRAMINE 50 MG/ML VIAL IV ONE (07:54)
[2016-07-19] MEDS: MAGIC MOUTHWASH 180 ML ORAL SUSP PO SCH ×4 (08:58→19:47)
[2016-07-19] MEDS: FLUCONAZOLE 100 MG TAB PO SCH (08:58)
[2016-07-19] MEDS: NYSTATIN ORAL SUSP 5 ML PO SCH ×4 (08:58→19:47)
--- NOTE | 2016-07-19 08:58 | PCM.GIPROG ---
Progress Note (GI) Chief Complaint: Ms. Pate is 81-year-old female with recent history complicated by pelvic fracture limited ambulation who developed more generalized weakness and decreased ambulatory ability. On arrival to the emergency room she was found to be severely anemic. Upper endoscopy 07-10 revealed mild erosive gastritis and esophagitis Ms. Pate continues to tolerate her diet well. She has had no further nausea emesis. She tolerated the transfusion of 1 unit packed red blood cells well. Her hemoglobin is slightly lower today. She has had no bowel movements since her admission despite MiraLax therapy. She continues to have a tender left parotid area but continues to improve. She has been evaluated by PT She does have evidence of a pulmonary embolus. This has been documented on CT. She has DVT on Dopplers has been seen by Dr. Cook for possible vascular filter. - Physical Exam Vital Signs: Temperature: 98.1 F (07/19/16 08:26) HR: 101 (07/19/16 08:26) RR: 18 (07/19/16 08:26) BP: 165/74 (07/19/16 08:26) Pulse Ox: 95 (07/19/16 08:26) General: Oriented x3. negative: No acute distress HEENT: negative: Icteric Sclera Respiratory: negative: Accessory Muscle Use Skin: Warm,Dry and Intact Neurological: Normal speech Psych/Mental Status: Appropriate Result Diagrams: 07/19/16 07:08 07/19/16 02:50 Additional Lab/DI Findings: Laboratory Tests 07/18/16 03:10 Iron 36.0 L TIBC 161 L % Saturation 22.3 Ferritin 707.0 H Vitamin B12 > 1000 H Serum Folate 8.91 - Impression and Plan (1) Acute GI bleeding Acute K92.2 - GASTROINTESTINAL HEMORRHAGE, UNSPECIFIED Comment: PPI to twice daily and switched to oral. (2) Stomatitis Acute K12.1 - OTHER FORMS OF STOMATITIS (3) Nausea & vomiting Acute R11.2 - NAUSEA WITH VOMITING, UNSPECIFIED V V (4) Constipation Acute K59.00 - CONSTIPATION, UNSPECIFIED C (5) Physical deconditioning Acute R53.81 - OTHER MALAISE Comment: PTOT consulted. (6) Sacral fracture, closed Acute S32.10XA - UNSP FRACTURE OF SACRUM, INIT ENCNTR FOR CLOSED FRACTURE initial encounter unspecified portion of sacrum F F F S32.10XA - Unspecified fracture of sacrum, initial encounter for closed fracture Comment: . (7) Vertebral compression fracture Acute M48.50XA - COLLAPSED VERTEBRA, NEC, SITE UNSP, INIT initial encounter F M48.50XA - Collapsed vertebra, not elsewhere classified, site unspecified, initial encounter for fracture (8) Hypertension Chronic I10 - ESSENTIAL (PRIMARY) HYPERTENSION essential hypertension I10 - Essential (primary) hypertension Comment: Continue home medication regimen (9) Pulmonary emboli Acute I26.99 - OTHER PULMONARY EMBOLISM WITHOUT ACUTE COR PULMONALE P acute without acute cor pulmonale Comment: Patient will require 5 total days of anticoagulation. She cannot receive more than that given her GI bleeding in decrease in her hemoglobin. Plan: 1. Continue to monitor hemoglobin and for active bleeding 2. Continue laxatives 3. Patient for vascular filter 4. Transfuse as needed 5. I will continue to follow with you
[2016-07-19] MEDS ORDERED: PEG-ELECTROLYTE 17 GM PACK PO SCH (09:00)
--- NOTE | 2016-07-19 10:21 | GENMEDPROG ---
Subjective Note: Patient with no new complaints. Hemoglobin has dropped to 7.9. She will require transfusion of 2 units of packed cells today. Notes Reviewed: Yes Events from last night noted and discussed with Clinical Staff Current Medication List: Reviewed Currently: Denies: Sputum, Nausea and Vomiting, Ambulating DVT Prophylaxis: Yes - Physical Examination Vital Signs and I&O: Last Vital Signs Temp 98.1 F 07/19/16 08:26 Pulse 95 07/19/16 09:11 Resp 18 07/19/16 08:26 BP 165/74 07/19/16 08:26 Pulse Ox 95 07/19/16 08:26 Oxygen Pulse Oxygen Saturation 95 O2 Device Room Air Oxygen Flow Rate 2 Fraction of Inspired Oxygen ( FIO2) Intake & Output 07/16/16 07/17/16 07/18/16 07/19/16 23:59 23:59 23:59 23:59 Intake Total 2138 3469 2669 4206 Output Total 200 2250 2475 600 Balance 1938 3413 146 8777 Patient's weight 70.035 kg 68.81 kg 68.521 kg 69.116 kg General: Oriented x3. negative: No acute distress Respiratory: Normal - CTA. negative: Accessory Muscle Use Cardiovascular: Regular rate and rhythm (No bradycardia or tachycardia), Normal S1, No Gallops,Rubs/Murmurs, Normal S2, Good Pedal Pulses (DP pulses 2+ bilaterally) GI: Normal bowel sounds (normal active sounds), Soft (non-distended), Non tender , No hepatospenomegaly, No masses Extremities/Musculoskeletal: Normal pulses (DP pulses 2+ bilaterally) Skin: Warm,Dry and Intact Neurological: Strength at 5/5 X4 ext (Motor 5/5 throughout.), Normal tone, Cranial nerves 3-12 NL ( 2-12 grossly intact.) Psych/Mental Status: Appropriate, Normal Affect Lab/DI/Studies Reviewed: Laboratory Results - last 24 hr 07/18/16 07/18/16 07/18/16 03:10 11:27 15:45 WBC RBC Hgb Hct MCV MCH MCHC RDW Plt Count MPV Sodium Potassium Chloride Carbon Dioxide Anion Gap BUN Creatinine Estimated GFR (MDRD) Glucose POC Capillary Glucose 147 H 132 H Calculated Osmolality Calcium Magnesium Iron 36.0 L TIBC 161 L % Saturation 22.3 Ferritin 707.0 H Vitamin B12 > 1000 H Serum Folate 8.91 Blood Type Antibody Screen Crossmatch 07/18/16 07/19/16 07/19/16 21:39 02:50 02:50 WBC 4.3 RBC 2.83 L Hgb 7.9 L Hct 24.1 L MCV 85 MCH 27.9 MCHC 32.7 L RDW 20.3 H Plt Count 152 MPV 8.0 Sodium 138 Potassium 3.6 Chloride 109 H Carbon Dioxide 23 Anion Gap 10 BUN 9 Creatinine 0.60 Estimated GFR (MDRD) > 60 Glucose 98 POC Capillary Glucose 148 H Calculated Osmolality 265 L Calcium 7.9 L Magnesium 1.60 Iron TIBC % Saturation Ferritin Vitamin B12 Serum Folate Blood Type Antibody Screen Crossmatch 07/19/16 07/19/16 07/19/16 05:20 07:08 07:08 WBC RBC Hgb 7.9 L Hct 25.5 L MCV MCH MCHC RDW Plt Count MPV Sodium Potassium Chloride Carbon Dioxide Anion Gap BUN Creatinine Estimated GFR (MDRD) Glucose POC Capillary Glucose 102 H Calculated Osmolality Calcium Magnesium Iron TIBC % Saturation Ferritin Vitamin B12 Serum Folate Blood Type AB POSITIVE Antibody Screen Negative Crossmatch See Detail - Assessment (1) Pulmonary emboli Acute I26.99 - OTHER PULMONARY EMBOLISM WITHOUT ACUTE COR PULMONALE Qualifiers: Pulmonary embolism type: P Chronicity: acute Acute cor pulmonale presence : without acute cor pulmonale Comment/Plan: Patient will require 5 total days of anticoagulation. She cannot receive more than that given her GI bleeding and decrease in her hemoglobin. Lower extremity Dopplers revealed bilateral DVTs yesterday of filter will be placed. She will complete anticoagulation dosing on Wednesday afternoon. (2) Acute bilateral deep vein thrombosis (DVT) of femoral veins Acute I82.413 - ACUTE EMBOLISM AND THROMBOSIS OF FEMORAL VEIN, BILATERAL Comment/Plan: Patient will receive 5 days of anticoagulation and have a filter placed. Appreciate Dr. Cook input. Given patient's GI bleeding is is I do not think it is safe that she be anticoagulated at this point outside of of monitored situation. Patient for a filter tomorrow. (3) Acute suppurative parotitis Acute K11.21 - ACUTE SIALOADENITIS Comment/Plan: Started vancomycin and Unasyn. Respiratory tract MRSA positive therefore patient will need 7 day treatment with vancomycin. Continue Unasyn. This is day 4 of treatment (4) Acute GI bleeding Acute K92.2 - GASTROINTESTINAL HEMORRHAGE, UNSPECIFIED Comment/Plan: PPI to twice daily and switched to oral. (5) Acute post-hemorrhagic anemia Acute D62 - ACUTE POSTHEMORRHAGIC ANEMIA Comment/Plan: Hemoglobin continues to trend downward will continue checking daily. Will require 2 units of packed red blood cells today. (6) Hyperglycemia Acute R73.9 - HYPERGLYCEMIA, UNSPECIFIED Comment/Plan: Fingerstick blood glucoses have stabilized. Hemoglobin A1c is acceptable. (7) Hypertension Chronic I10 - ESSENTIAL (PRIMARY) HYPERTENSION Qualifiers: Hypertension type: essential hypertension Qualified Code(s): I10 - Essential (primary) hypertension Comment/Plan: Continue home medication regimen (8) Altered gait Acute R26.9 - UNSPECIFIED ABNORMALITIES OF GAIT AND MOBILITY Comment/Plan: Orthopedics help very much appreciated. Will set patient up for appointment with Dr. Benites at discharge for possible injection however will need to be very mindful given anticoagulation. - Plan Continue present very complicated care. Apparently patient has used up all of her mcc days and will be unable to return to a nursing facility. She plans to go home which I think will be a very difficult situation for her and her caretakers. Disposition Plan: Hopefully home late Wednesday or early Case Care Discussed with: Patient, Consultants, Nursing Staff Education/Counseling Given To: Patient Education/Counseling Given Regarding: Diagnosis, Treatment, Prognosis, Follow Up , Disposition Plan Total Time: 55 minutes. Critical Care: No Couseling Time (>50% in counseling/coordination): No
--- NOTE | 2016-07-19 12:01 | PCM.SURGRO ---
- Subjective Patient: Reports: No new complaints, Feels better - Objective / Physical Exam Vital Signs: Temperature: 98.2 F (07/19/16 11:37) HR: 95 (07/19/16 11:37)RR: 18 (07/19/16 11: 37) BP: 150/85 (07/19/16 11:37)Pulse Ox: 98 (07/19/16 11:37) General: Alert, Oriented x3, Cooperative HEENT: Normal, PERRLA, EOMI Respiratory: Normal - CTA. negative: Diminished, Rhonchi Cardiovascular: Regular rate, Regular rate and rhythm Gastrointestinal: Soft, Bowel Sounds. negative: Distended, Tender Back: Normal. negative: Abrasion, CVA Tenderness Extremities: negative: Tenderness, Swelling, Edema, Clubbing, Cyanosis Psych/Mental Status: Appropriate, Normal Affect, Cooperative Neurological: Strength at 5/5 X4 ext, Cranial nerves 3-12 NL Skin: Warm,Dry and Intact, No rashes, No breakdown Lymphatics: Normal. negative: Adenopathy, Tender - Assessment and Plan (1) Acute GI bleeding Acute K92.2 - GASTROINTESTINAL HEMORRHAGE, UNSPECIFIED Comment/Plan: Stable. Getting transfusion. (2) Pulmonary emboli Acute I26.99 - OTHER PULMONARY EMBOLISM WITHOUT ACUTE COR PULMONALE P acute without acute cor pulmonale Comment/Plan: For IVC filter tomorrow. (3) Acute bilateral deep vein thrombosis (DVT) of femoral veins Acute I82.413 - ACUTE EMBOLISM AND THROMBOSIS OF FEMORAL VEIN, BILATERAL Comment/Plan: For IVC filter tomorrow.
[2016-07-19] MEDS: FUROSEMIDE 20 MG/2 ML VIAL IV SCH ×2 (13:53→15:38)
[2016-07-19] MEDS ORDERED: Medication Special Instructions SCH (14:00)
[2016-07-19] MEDS: LORAZEPAM 0.5 MG TAB PO SCH (17:41)
[2016-07-19] MEDS: RANITIDINE 150 MG TAB PO SCH (19:47)
[2016-07-19] MEDS: PRAVASTATIN 20 MG TAB PO SCH (19:47)
[2016-07-20] MEDS: AMPICILLIN-SULBACTAM 3 GM in NS 100 ML IV SCH ×4 (02:31→19:36)
[2016-07-20 03:37] LABS: MPV 8.1 fL (7.4-10.4)
[2016-07-20 03:50] LABS: BLOOD UREA NITROGEN 7 MG/DL (7-17); CALCIUM 7.8 MG/DL (8.4-10.2); CALCULATED OSMOLALITY 263 MOs/Kg (270-290); CHLORIDE 107 mEq/L (98-107); GLUCOSE 89 MG/DL (70-99); SODIUM LEVEL 138 mEq/L (137-146)
[2016-07-20] MEDS: PANTOPRAZOLE 40 MG TAB PO SCH ×2 (04:52→16:53)
[2016-07-20] MEDS: REGULAR INSULIN 100 UNITS/ML - 3 ML VIAL SQ SCH ×4 (05:20→20:55)
[2016-07-20] MEDS: ACETAMINOPHEN 325 MG/TAB TABLET PO PRN ×2 (06:44→22:32)
[2016-07-20] MEDS ORDERED: KCL 20 mEq/100 ml Premix Run 20 MEQ/100 ML RTU IV ONE (07:00)
--- NOTE | 2016-07-20 07:59 | PCM.GIPROG ---
Progress Note (GI) Chief Complaint: Ms. Pate is 81-year-old female with recent history complicated by pelvic fracture limited ambulation who developed more generalized weakness and decreased ambulatory ability. On arrival to the emergency room she was found to be severely anemic. Upper endoscopy 07-10 revealed mild erosive gastritis and esophagitis Ms. Pate continues to tolerate her diet well. She has had no further nausea emesis. She tolerated the transfusion of her 2nd unit packed red blood cells well. Her hemoglobin is improved. She has had a bowel movements with MiraLax therapy. She continues to have a tender left parotid area but continues to improve. She has been evaluated by PT She does have evidence of a pulmonary embolus. This has been documented on CT. She has DVT on Dopplers has been seen by Dr. Cook for vascular filter today. - Physical Exam Vital Signs: Temperature: 98.2 F (07/20/16 07:39) HR: 98 (07/20/16 07:39) RR: 17 (07/20/16 07:39) BP: 154/79 (07/20/16 07:39) Pulse Ox: 95 (07/20/16 07:39) General: Alert, Oriented x3. negative: No acute distress HEENT: negative: Icteric Sclera Respiratory: negative: Accessory Muscle Use Neurological: Normal speech Psych/Mental Status: Appropriate Result Diagrams: 07/20/16 02:35 07/20/16 02:35 - Impression and Plan (1) Acute GI bleeding Acute K92.2 - GASTROINTESTINAL HEMORRHAGE, UNSPECIFIED Comment: PPI to twice daily and switched to oral. (2) Stomatitis Acute K12.1 - OTHER FORMS OF STOMATITIS (3) Nausea & vomiting Acute R11.2 - NAUSEA WITH VOMITING, UNSPECIFIED V V (4) Constipation Acute K59.00 - CONSTIPATION, UNSPECIFIED C (5) Physical deconditioning Acute R53.81 - OTHER MALAISE Comment: PTOT consulted. (6) Sacral fracture, closed Acute S32.10XA - UNSP FRACTURE OF SACRUM, INIT ENCNTR FOR CLOSED FRACTURE initial encounter unspecified portion of sacrum F F F S32.10XA - Unspecified fracture of sacrum, initial encounter for closed fracture Comment: . (7) Vertebral compression fracture Acute M48.50XA - COLLAPSED VERTEBRA, NEC, SITE UNSP, INIT initial encounter F M48.50XA - Collapsed vertebra, not elsewhere classified, site unspecified, initial encounter for fracture (8) Hypertension Chronic I10 - ESSENTIAL (PRIMARY) HYPERTENSION essential hypertension I10 - Essential (primary) hypertension (9) Pulmonary emboli Acute I26.99 - OTHER PULMONARY EMBOLISM WITHOUT ACUTE COR PULMONALE P acute without acute cor pulmonale Plan: 1. Continue to monitor hemoglobin 2. Continue PPI therapy 3. Laxatives as needed 4. Continue care for other medical problems Case Care Discussed with: Other (Discussed with Dr. Olea today)
[2016-07-20] MEDS: NYSTATIN ORAL SUSP 5 ML PO SCH ×4 (08:05→19:36)
[2016-07-20] MEDS: MAGIC MOUTHWASH 180 ML ORAL SUSP PO SCH ×4 (08:05→19:52)
[2016-07-20] MEDS: POTASSIUM CHLORIDE 20 MEQ TAB PO SCH ×3 (08:06→16:48)
[2016-07-20] MEDS: FLUCONAZOLE 100 MG TAB PO SCH (08:06)
[2016-07-20] MEDS: MAGNESIUM OXIDE 400 MG TAB PO SCH ×3 (08:06→16:48)
[2016-07-20] MEDS: Magnesium Sulfate 2 gm/D5W 2 GM/50 ML RTU IV SCH ×2 (09:01→18:13)
[2016-07-20] MEDS ORDERED: PROMETHAZINE 25 MG/ML VIAL IV PRN (11:01)
[2016-07-20] MEDS ORDERED: ONDANSETRON HCL 4 MG ODT TAB PO PRN (11:01)
[2016-07-20] MEDS ORDERED: ONDANSETRON HCL 4 MG/2 ML VIAL IV PRN (11:01)
[2016-07-20] MEDS ORDERED: FENTANYL 100 MCG/2 ML VIAL IV PRN ×2 (11:01)
[2016-07-20] MEDS ORDERED: hydrALAZINE 20 MG/ML VIAL IV PRN (11:01)
[2016-07-20] MEDS ORDERED: LABETALOL 20 MG/4 ML SYRINGE IV PRN (11:01)
[2016-07-20] MEDS ORDERED: HYDROmorphone 1 MG INJECTION IV PRN ×2 (11:01)
--- NOTE | 2016-07-20 11:02 | SC.ANESPOS ---
[id number], Hemodynamically Stable, Pain Control Adequate Phase I & II Recovery Complete: Yes Apparent Anesthesia Complication: No : N - Vital Signs Blood Pressure: 154/79 Pulse: 92 Resp Rate: 17 O2 Sat: 95 Temp: 98.2 F
--- NOTE | 2016-07-20 11:18 | HIM.ANES ---
Anesthesia Evaluation & Plan - Focused Review of Systems Cardiac History: Yes: Hx Hypertension, Hx Cardiac Disorders, Hx Abnormal Cholesterol/Hyperlipidemia (DYSLIPIDEMIA) HEENT: Yes: Cataracts, Hx Vision Problem (GLASSES), Other HEENT Problems Respiratory: No: Hx Asthma, Hx Chronic Obstructive Pulmonary Disease (COPD) Gastrointestinal: Yes: Hx Gastroesophageal Reflux Disease (Controlled on Rx), Hx Gastrointestinal Disorders, Hx Chronic Constipation, Hx Diverticulitis, Hx Diverticulosis, Hx Colonoscopy Neurological/Musculoskeletal: No: HX Cerebrovascular Accident, Hx Seizures, Hx Neurological Disorders Psychological: No Hx Anxiety, No Hx Depression, Yes Hx Mental/Emotional Disorders HX Other Psyco/Soc Problems: Anxiety Endocrine: Yes: Hx Non-Insulin Dependent Diabetes, Hx Insulin Dependent Diabetes Blood/Autoimmune: Yes: Hx Anemia No: Hx AIDS, Hx Hepatitis (type) Smoking Status: Never smoker Past Social History: Denies: Substance Use Disorder Alcohol use: None Surgical History: Yes: Appendectomy, Other (SKIN CANCER RESECTION) Other Surgical History: SKIN CA, HEAD - Focused Physical Exam Mallampati: Class IV Thyromental Distance: Greater than 3 Dental: Removable Dental Work Cardiovascular/Chest: Normal Respiratory: Decreased breath sounds Any problems with anesthesia, including nausea and vomiting?: No Any relatives with a history of Malignant Hyperthermia?: No Does patient have a history of Malignant Hyperthermia?: No Beta Jama given (if appropriate): N/A Other: Problem List Problem Status Onset Acute GI bleeding Acute Acute bilateral deep vein thrombosis (DVT) of femoral veins Acute Acute post-hemorrhagic anemia Acute Acute suppurative parotitis Acute Altered gait Acute Constipation Acute Fever Acute Hyperglycemia Acute Hypocalcemia Acute Hyponatremia Acute Knee pain, acute Acute Nausea & vomiting Acute Pulmonary emboli Acute Stomatitis Acute Accidental overdose Acute Aspiration pneumonia Acute Physical deconditioning Acute Sacral fracture, closed Acute Vertebral compression fracture Acute Hypertension Chronic PT/PTT/INR/ PT 12.6 SEC (9.2-11.2) H 07/14/16 15:55 INR 1.2 07/14/16 15:55 APTT 28.6 SEC (22-35) 07/14/16 15:55 CBC/BMP/Other 07/20/16 02:35 07/20/16 02:35 Allergies Allergy/AdvReac Type Severity Reaction Status Date / Time pollen extracts Allergy See Verified 05/29/16 12:04 Comments Home Medications Medication Instructions Recorded Last Taken Type Aspirin [Aspirin EC] 81 mg PO QHS 07/31/13 07/13/16 History Calcium Carbonate + Vitamin D 500 mg PO BID 07/31/13 07/14/16 History [Oscal with Vitamin D] Cholecalciferol (Vitamin D3) 1,000 unit PO DAILY 07/31/13 07/14/16 History [Vitamin D] Losartan Potassium 100 mg PO DAILY 07/31/13 07/14/16 History Liraglutide [Victoza 18 mg/3 ml 1.8 units SQ DAILY 08/08/14 07/13/16 History Pen] Omeprazole 20 mg PO DAILY 08/08/14 07/14/16 History Venlafaxine HCl ER [Effexor Xr] 75 mg PO DAILY PRN 04/29/16 07/14/16 History Cyclobenzaprine HCl [Flexeril] 5 mg PO TID PRN 05/29/16 07/14/16 History Promethazine [Phenergan] 25 mg PO Q6H PRN 05/29/16 07/14/16 History Nabumetone [Relafen] 750 mg PO BID #30 tablet 06/05/16 07/14/16 Rx Oxycodone Immediate Release 5 mg PO Q6H PRN #30 tab 06/05/16 07/14/16 Rx [Oxycodone Immediate Release (OxyIR)] Loperamide HCl [Loperamide] 4 mg PO Q4H PRN 07/14/16 Unknown History Lorazepam 0.5 mg PO QHS 07/14/16 07/13/16 History Ondansetron [Ondansetron Odt] 8 mg PO TID 07/14/16 07/14/16 History Polyethylene Glycol 3350 [Miralax] 17 gm PO DAILY PRN 07/14/16 Unknown History Pravastatin Sodium [Pravachol] 20 mg PO QHS 07/14/16 07/13/16 History Ranitidine HCl 300 mg PO DAILY 07/14/16 07/14/16 History Height and Weight Patient's height 5 ft 4 in Patient's weight 154 lb 3.2 oz Weight (Calculated Kilograms) 69.944 BMI 26.2 Vital Signs Temperature 98.2 F 07/20/16 11:02 Pulse Rate 92 07/20/16 11:02 Respiratory Rate 07/20/16 11:02 Blood Pressure 154/79 07/20/16 11:02 Pulse Oxygen Saturation 95 07/20/16 11:02 - Anesthetic Plan Anesthesia Type: General, MAC ASA Class: 4 -: I have examined this patient and reviewed the medical record. The patient has been assessed prior to anesthesia. Risks and benefits of anesthesia and anesthetic technique options have been discussed and all questions answered. The patient accepts the risk and desires me to proceed with the planned anesthetic.
[2016-07-20] MEDS ORDERED: HEPARIN 5000 UNITS/ML VIAL ONE (12:33)
[2016-07-20] MEDS ORDERED: ISOVUE-300 (61%) 50 ML ONE (12:33)
--- NOTE | 2016-07-20 13:59 | HIMOPRPT ---
DATE OF PROCEDURE: 07/20/16 PREOPERATIVE DIAGNOSIS: Pulmonary emboli and inability to anticoagulate. POSTOPERATIVE DIAGNOSIS: Pulmonary emboli and inability to anticoagulate. PROCEDURE: Placement of inferior vena cava filter. SURGEON: Yahir Cook MD VP CARE MANAGEMENT: None ANESTHESIA: Moderate IV sedation with local anesthesia. ESTIMATED BLOOD LOSS: Minimal COMPLICATIONS: None noted. INDICATIONS: PATITO THORPE is a 81year-old F patient. She had PE and GI bleeding so we were asked to place an IVC filter. I explained the risks and benefits of this including risk of infection, bleeding, anesthesia as well as the unforeseen complications, the risks of caval occlusion and filter migration. Patient had understood, had agreed, and was brought for the above- mentioned procedure. PROCEDURE IN DETAIL: The patient was brought to the operating room and placed on the operative table in supine position. After identification of the patient' s site, was given adequate amount of moderate IV sedation, then prepped and draped in sterile manner. When given okay by Anesthesia, after appropriate time- out, right groin was anesthetized with local anesthesia after doing the same on the left and being unable to advance the guidewire. Under ultrasound guidance, large-bore needle was placed into the femoral vein on the Rt. Good blood return was obtained. Guidewire was placed without problems. Needle was advanced up through the femoral vein, iliac vein, and superior vena cava. Over the guidewire the dilator and sheath were placed. The dilator was removed. A cavogram was obtained. The cava was approximately 26 mm below the renal vein orifices. We went ahead and positioned the catheter in appropriate position, and then deployed the inferior vena cava under fluoroscopic control. We had good position. No problems were noted. The sheath had been removed. Pressure had been placed at the access site and then a dry sterile compression dressing when hemostasis assured. The patient tolerated this without any problems, was taken to the recovery room in excellent condition with correct sponge counts and needle counts.
--- NOTE | 2016-07-20 14:33 | GENMEDPROG ---
Subjective Note: Patient remains very complicated with competing problems including GI bleeding and pulmonary embolus. She was noted to have deep venous thrombosis and a filter was placed today. Notes Reviewed: Yes Events from last night noted and discussed with Clinical Staff Current Medication List: Reviewed Currently: Denies: Sputum, Nausea and Vomiting, Ambulating DVT Prophylaxis: Yes - Physical Examination Vital Signs and I&O: Last Vital Signs Temp 98.1 F 07/20/16 13:43 Pulse 95 07/20/16 14:15 Resp 14 07/20/16 14:15 BP 164/77 07/20/16 14:15 Pulse Ox 97 07/20/16 14:15 Oxygen Pulse Oxygen Saturation 97 O2 Device Nasal Cannula Oxygen Flow Rate 0 Fraction of Inspired Oxygen ( FIO2) Intake & Output 07/17/16 07/18/16 07/19/16 07/20/16 23:59 23:59 23:59 23:59 Intake Total 3469 2669 6916 1262 Output Total 2250 2475 2100 1 Balance 0302 010 7330 1261 Patient's weight 68.81 kg 68.521 kg 69.116 kg 69.944 kg General: Alert, Oriented x3, Cooperative HEENT: Normal, PERRLA, EOMI Lymphatics: Normal. negative: Adenopathy, Tender Respiratory: Normal - CTA. negative: Diminished, Rhonchi Cardiovascular: Regular rate, Regular rate and rhythm GI: Normal bowel sounds (normal active sounds), Soft (non-distended), Non tender , No hepatospenomegaly, No masses Extremities/Musculoskeletal: negative: Tenderness, Swelling, Edema, Clubbing, Cyanosis Skin: Warm,Dry and Intact, No rashes, No breakdown Psych/Mental Status: Appropriate, Normal Affect, Cooperative - Assessment (1) Pulmonary emboli Acute I26.99 - OTHER PULMONARY EMBOLISM WITHOUT ACUTE COR PULMONALE Qualifiers: Pulmonary embolism type: P Chronicity: acute Acute cor pulmonale presence : without acute cor pulmonale Comment/Plan: Patient will choir 5 total days of anticoagulation the cause she took to have her filter placed will need to be discounted from the 5 days. (2) Acute bilateral deep vein thrombosis (DVT) of femoral veins Acute I82.413 - ACUTE EMBOLISM AND THROMBOSIS OF FEMORAL VEIN, BILATERAL Comment/Plan: Filter placed today. Resume anticoagulation as soon as possible (3) Acute suppurative parotitis Acute K11.21 - ACUTE SIALOADENITIS Comment/Plan: Started vancomycin and Unasyn. Respiratory tract MRSA positive therefore patient will need 7 day treatment with vancomycin. Stop Unasyn. This is day 5 of treatment (4) Acute GI bleeding Acute K92.2 - GASTROINTESTINAL HEMORRHAGE, UNSPECIFIED Comment/Plan: PPI to twice daily and switched to oral. (5) Acute post-hemorrhagic anemia Acute D62 - ACUTE POSTHEMORRHAGIC ANEMIA Comment/Plan: Good response to transfusion yesterday continue to monitor hemoglobin. (6) Hyperglycemia Acute R73.9 - HYPERGLYCEMIA, UNSPECIFIED Comment/Plan: Fingerstick blood glucoses have stabilized. Hemoglobin A1c is acceptable. (7) Hypertension Chronic I10 - ESSENTIAL (PRIMARY) HYPERTENSION Qualifiers: Hypertension type: essential hypertension Qualified Code(s): I10 - Essential (primary) hypertension Comment/Plan: Continue home medication (8) Altered gait Acute R26.9 - UNSPECIFIED ABNORMALITIES OF GAIT AND MOBILITY Comment/Plan: Orthopedics help very much appreciated. Will set patient up for appointment with Dr. Benites at discharge for possible injection however will need to be very mindful given anticoagulation. - Plan Continue present very complicated care. Apparently patient has used up all of her senior care days and will be unable to return to a nursing facility. She plans to go home which I think will be a very difficult situation for her and her caretakers. Disposition Plan: Hopefully home late Wednesday or early Case Care Discussed with: Patient, Consultants, Nursing Staff Education/Counseling Given To: Patient Education/Counseling Given Regarding: Diagnosis, Treatment, Prognosis, Follow Up , Disposition Plan Total Time: 45 minutes Critical Care: No Couseling Time (>50% in counseling/coordination): No
[2016-07-20] MEDS ORDERED: PROPOFOL 200 MG/20 ML VIAL IV ONE (16:01)
[2016-07-20] MEDS ORDERED: FENTANYL 100 MCG/2 ML VIAL IV ONE (16:01)
[2016-07-20] MEDS: OXYCODONE HCL 5 MG TABLET PO PRN (18:28)
[2016-07-20] MEDS: RANITIDINE 150 MG TAB PO SCH (19:35)
[2016-07-20] MEDS: PRAVASTATIN 20 MG TAB PO SCH (19:35)
[2016-07-20] MEDS: LORAZEPAM 0.5 MG TAB PO SCH (19:36)
[2016-07-20] MEDS: NS 1,000 ML IV SCH (22:32)
[2016-07-21] MEDS: AMPICILLIN-SULBACTAM 3 GM in NS 100 ML IV SCH ×4 (01:07→20:27)
[2016-07-21] MEDS: REGULAR INSULIN 100 UNITS/ML - 3 ML VIAL SQ SCH ×4 (05:18→21:01)
[2016-07-21] MEDS: PANTOPRAZOLE 40 MG TAB PO SCH ×2 (05:24→17:40)
[2016-07-21 07:23] LABS: MPV 7.9 fL (7.4-10.4)
[2016-07-21 07:33] LABS: BLOOD UREA NITROGEN 8 MG/DL (7-17); CALCIUM 7.9 MG/DL (8.4-10.2); CALCULATED OSMOLALITY 259 MOs/Kg (270-290); CHLORIDE 107 mEq/L (98-107); GLUCOSE 88 MG/DL (70-99); SODIUM LEVEL 136 mEq/L (137-146)
--- NOTE | 2016-07-21 07:52 | PCM.GIPROG ---
Progress Note (GI) Chief Complaint: Ms. Pate is 81-year-old female with recent history complicated by pelvic fracture limited ambulation who developed more generalized weakness and decreased ambulatory ability. On arrival to the emergency room she was found to be severely anemic. Upper endoscopy 07-16-16 revealed mild erosive gastritis and esophagitis Ms. Pate continues to tolerate her diet well. She has had no further nausea emesis. She tolerated the transfusion of her 2nd unit packed red blood cells well. Her hemoglobin is improved. She has had a bowel movements with MiraLax therapy. She continues to have a tender left parotid area but continues to improve. She has been evaluated by PT She does have evidence of a pulmonary embolus. This has been documented on CT. She has DVT on Dopplers. Avascular filter was placed by Dr. Cook for vascular filter 07-20-16 - Physical Exam Vital Signs: Temperature: 98.3 F (07/21/16 05:07) HR: 89 (07/21/16 05:07) RR: 18 (07/21/16 05:07) BP: 152/74 (07/21/16 05:23) Pulse Ox: 95 (07/21/16 05:07) General: Alert, Oriented x3, No acute distress HEENT: negative: Icteric Sclera Respiratory: negative: Accessory Muscle Use Neurological: Normal speech Psych/Mental Status: Appropriate Result Diagrams: 07/21/16 06:36 07/21/16 06:36 Additional Lab/DI Findings: Laboratory Tests 07/19/16 07/20/16 07/20/16 23:00 02:35 15:40 Hgb 9.8 L 9.6 L 10.8 L D - Impression and Plan (1) Acute GI bleeding Acute K92.2 - GASTROINTESTINAL HEMORRHAGE, UNSPECIFIED Comment: PPI to twice daily (2) Stomatitis Acute K12.1 - OTHER FORMS OF STOMATITIS (3) Nausea & vomiting Acute R11.2 - NAUSEA WITH VOMITING, UNSPECIFIED (4) Constipation Acute K59.00 - CONSTIPATION, UNSPECIFIED (5) Physical deconditioning Acute R53.81 - OTHER MALAISE Comment: PTOT consulted. (6) Sacral fracture, closed Acute S32.10XA - UNSP FRACTURE OF SACRUM, INIT ENCNTR FOR CLOSED FRACTURE initial encounter unspecified portion of sacrum S32.10XA - Unspecified fracture of sacrum, initial encounter for closed fracture Comment: . (7) Vertebral compression fracture Acute M48.50XA - COLLAPSED VERTEBRA, NEC, SITE UNSP, INIT initial encounter M48.50XA - Collapsed vertebra, not elsewhere classified, site unspecified, initial encounter for fracture (8) Hypertension Chronic I10 - ESSENTIAL (PRIMARY) HYPERTENSION essential hypertension I10 - Essential (primary) hypertension Comment: Continue home medication (9) Pulmonary emboli Acute I26.99 - OTHER PULMONARY EMBOLISM WITHOUT ACUTE COR PULMONALE acute without acute cor pulmonale Comment: Patient will choir 5 total days of anticoagulation the cause she took to have her filter placed will need to be discounted from the 5 days. Plan: 1. Continue care were multiple medical problems 2. Continue PPI therapy 3. Monitor hemoglobin 4. If hemoglobin remains stable no further GI evaluation planned at the present time
--- NOTE | 2016-07-21 07:56 | PCM.SURGRO ---
- Subjective Patient: Reports: No new complaints - Objective / Physical Exam Vital Signs: Temperature: 98.3 F (07/21/16 05:07) HR: 89 (07/21/16 05:07)RR: 18 (07/21/16 05: 07) BP: 152/74 (07/21/16 05:23)Pulse Ox: 95 (07/21/16 05:07) General: Alert, Oriented x3, Cooperative HEENT: Normal, PERRLA, EOMI Respiratory: Normal - CTA. negative: Diminished, Rhonchi Cardiovascular: Regular rate, Regular rate and rhythm Gastrointestinal: Soft, Bowel Sounds. negative: Distended, Tender Back: Normal. negative: Abrasion, Ecchymosis Extremities: Edema. negative: Tenderness, Clubbing, Cyanosis Psych/Mental Status: Appropriate, Cooperative Neurological: Strength at 5/5 X4 ext, Cranial nerves 3-12 NL Skin: Warm,Dry and Intact, No rashes, No breakdown Surgical wound: Clean/Dry Lymphatics: Normal. negative: Adenopathy, Tender - Assessment and Plan (1) Acute GI bleeding Acute K92.2 - GASTROINTESTINAL HEMORRHAGE, UNSPECIFIED Comment/Plan: No further bleeding. (2) Pulmonary emboli Acute I26.99 - OTHER PULMONARY EMBOLISM WITHOUT ACUTE COR PULMONALE acute without acute cor pulmonale Comment/Plan: IVC filter placed. (3) Acute bilateral deep vein thrombosis (DVT) of femoral veins Acute I82.413 - ACUTE EMBOLISM AND THROMBOSIS OF FEMORAL VEIN, BILATERAL Comment/Plan: IVC filter placed. Ok for ambulation and discharge from surgical standpoint. Call if further problems.
[2016-07-21] MEDS: NS 1,000 ML IV SCH ×3 (08:04→17:40)
[2016-07-21] MEDS: PEG-ELECTROLYTE 17 GM PACK PO SCH (08:06)
[2016-07-21] MEDS: POTASSIUM CHLORIDE 20 MEQ TAB PO SCH ×3 (08:06→17:40)
[2016-07-21] MEDS: MAGNESIUM OXIDE 400 MG TAB PO SCH ×3 (08:06→17:40)
[2016-07-21] MEDS: MAGIC MOUTHWASH 180 ML ORAL SUSP PO SCH ×4 (08:06→21:00)
[2016-07-21] MEDS: NYSTATIN ORAL SUSP 5 ML PO SCH ×4 (08:06→21:02)
[2016-07-21] MEDS: FLUCONAZOLE 100 MG TAB PO SCH (08:06)
[2016-07-21] MEDS: OXYCODONE HCL 5 MG TABLET PO PRN (09:54)
[2016-07-21] MEDS: ENOXAPARIN 80 MG/0.8 ML PFS SQ SCH ×2 (09:55→21:02)
--- NOTE | 2016-07-21 13:16 | GENMEDPROG ---
Chief Complaint: PE, DVT, parotitis Subjective Note: Patient denies any leg pain, shortness of breath, chest pain. She says that her parotitis is much improved. Notes Reviewed: Yes Events from last night noted and discussed with Clinical Staff Current Medication List: Reviewed Currently: Denies: Sputum, Nausea and Vomiting, Ambulating DVT Prophylaxis: Yes - Physical Examination Vital Signs and I&O: Last Vital Signs Temp 98.2 F 07/21/16 09:00 Pulse 92 07/21/16 09:00 Resp 18 07/21/16 09:00 BP 152/74 07/21/16 05:23 Pulse Ox 94 07/21/16 09:00 Oxygen Pulse Oxygen Saturation 94 O2 Device Room Air Oxygen Flow Rate 0 Fraction of Inspired Oxygen ( FIO2) Intake & Output 07/19/16 07/20/16 07/21/16 07/22/16 06:59 06:59 06:59 06:59 Intake Total 4686 4092 2583 180 Output Total 2075 1800 626 Balance 2611 2292 1957 180 Patient's weight 69.116 kg 69.944 kg 70.874 kg General: Alert, Oriented x3, No acute distress HEENT: Other (Minimal swelling and tenderness on the left side of the face.) Neck: Normal Trachea alignment, Normal inspection Respiratory: Normal - CTA. negative: Accessory Muscle Use, Rhonchi, Stridor, Tachypnea Cardiovascular: Regular rate, No Gallops,Rubs/Murmurs GI: Normal bowel sounds, Soft, Non tender (non distended) Extremities/Musculoskeletal: Other (Normal Tone). negative: Edema, Cyanosis Lab/DI/Studies Reviewed: Laboratory Tests 07/21/16 07/21/16 06:36 06:36 WBC 4.8 Hgb 9.8 L Hct 30.2 L Potassium 4.7 D BUN 8 Creatinine 0.60 - Assessment (1) Acute GI bleeding Acute K92.2 - GASTROINTESTINAL HEMORRHAGE, UNSPECIFIED Comment/Plan: PPI to twice daily (2) Acute post-hemorrhagic anemia Acute D62 - ACUTE POSTHEMORRHAGIC ANEMIA Comment/Plan: Good response to transfusion of 2 units of blood on July 19. continue to monitor hemoglobin. (3) Hyponatremia Acute E87.1 - HYPO-OSMOLALITY AND HYPONATREMIA Comment/Plan: Mild and asymptomatic. Will administer gentle IV normal saline and recheck sodium level in the morning. (4) Stomatitis Acute K12.1 - OTHER FORMS OF STOMATITIS Comment/Plan: Parotitis. Continue IV vancomycin. Tomorrow will be her 7th last dose. (5) Physical deconditioning Acute R53.81 - OTHER MALAISE Comment/Plan: PTOT consulted. (6) Sacral fracture, closed Acute S32.10XA - UNSP FRACTURE OF SACRUM, INIT ENCNTR FOR CLOSED FRACTURE Qualifiers: Encounter type: initial encounter Zone of sacrum fracture: unspecified portion of sacrum Qualified Code(s): S32.10XA - Unspecified fracture of sacrum , initial encounter for closed fracture Comment/Plan: . (7) Hypertension Chronic I10 - ESSENTIAL (PRIMARY) HYPERTENSION Qualifiers: Hypertension type: essential hypertension Qualified Code(s): I10 - Essential (primary) hypertension Comment/Plan: Continue home medication - Plan Patient with PE and DVT, cannot do full anticoagulation due to GI bleed from her gastritis. She had IVC filter placed, currently on therapeutic Lovenox will be discontinued after total 5 day therapy. She is also getting IV vancomycin far her parotitis, last dose will be tomorrow. If she is hemodynamically stable and doing well, she can be discharged home likely tomorrow. Will ensure that she is evaluated by Physical therapy. Total Time: 38
[2016-07-21 14:47] VITALS: BMI 26.8
[2016-07-21] MEDS: ACETAMINOPHEN 325 MG/TAB TABLET PO PRN (19:09)
[2016-07-21] MEDS: LORAZEPAM 0.5 MG TAB PO SCH (21:00)
[2016-07-21] MEDS: RANITIDINE 150 MG TAB PO SCH (21:03)
[2016-07-21] MEDS: PRAVASTATIN 20 MG TAB PO SCH (21:03)
[2016-07-22] MEDS: NS 1,000 ML IV SCH ×2 (01:48→11:41)
[2016-07-22] MEDS: AMPICILLIN-SULBACTAM 3 GM in NS 100 ML IV SCH ×2 (01:49→08:41)
[2016-07-22] MEDS: PANTOPRAZOLE 40 MG TAB PO SCH (05:49)
[2016-07-22] MEDS: REGULAR INSULIN 100 UNITS/ML - 3 ML VIAL SQ SCH ×2 (05:49→11:31)
--- NOTE | 2016-07-22 07:43 | PCM.GIPROG ---
Progress Note (GI) Chief Complaint: Ms. Pate is 81-year-old female with recent history complicated by pelvic fracture limited ambulation who developed more generalized weakness and decreased ambulatory ability. On arrival to the emergency room she was found to be severely anemic. Upper endoscopy 07-16-16 revealed mild erosive gastritis and esophagitis Ms. Pate continues to tolerate her diet well. She has had no further nausea emesis since her upper endoscopy. She tolerated the transfusion of her 2nd unit packed red blood cells well. Her hemoglobin has remained stable since transfusion today her labs are pending . She has had a bowel movements with MiraLax therapy. She does have evidence of a pulmonary embolus. This has been documented on CT. She has DVT on Dopplers. Avascular filter was placed by Dr. Cook for vascular filter 07-20-16 - Physical Exam Vital Signs: Temperature: 97.9 F (07/22/16 05:34) HR: 91 (07/22/16 05:34) RR: 18 (07/22/16 05:34) BP: 165/89 (07/22/16 05:34) Pulse Ox: 97 (07/22/16 05:34) General: Alert, Oriented x3, No acute distress HEENT: negative: Icteric Sclera Respiratory: negative: Accessory Muscle Use Neurological: Normal speech Psych/Mental Status: Appropriate Result Diagrams: 07/21/16 06:36 07/21/16 06:36 - Impression and Plan (1) Acute GI bleeding Acute K92.2 - GASTROINTESTINAL HEMORRHAGE, UNSPECIFIED Comment: PPI to twice daily (2) Stomatitis Acute K12.1 - OTHER FORMS OF STOMATITIS (3) Nausea & vomiting Acute R11.2 - NAUSEA WITH VOMITING, UNSPECIFIED (4) Constipation Acute K59.00 - CONSTIPATION, UNSPECIFIED (5) Physical deconditioning Acute R53.81 - OTHER MALAISE Comment: PTOT consulted. (6) Sacral fracture, closed Acute S32.10XA - UNSP FRACTURE OF SACRUM, INIT ENCNTR FOR CLOSED FRACTURE initial encounter unspecified portion of sacrum S32.10XA - Unspecified fracture of sacrum, initial encounter for closed fracture Comment: . (7) Vertebral compression fracture Acute M48.50XA - COLLAPSED VERTEBRA, NEC, SITE UNSP, INIT initial encounter M48.50XA - Collapsed vertebra, not elsewhere classified, site unspecified, initial encounter for fracture (8) Hypertension Chronic I10 - ESSENTIAL (PRIMARY) HYPERTENSION essential hypertension I10 - Essential (primary) hypertension Comment: Continue home medication (9) Pulmonary emboli Acute I26.99 - OTHER PULMONARY EMBOLISM WITHOUT ACUTE COR PULMONALE acute without acute cor pulmonale Comment: . Plan: 1. Awaiting labs 2. Chronic PPI therapy 3. Continue care for other medical problems 4. MiraLax as needed for chronic constipation 5. If her labs remained stable today will sign off
[2016-07-22 08:05] LABS: BLOOD UREA NITROGEN 7 MG/DL (7-17); CALCIUM 8.3 MG/DL (8.4-10.2); CALCULATED OSMOLALITY 260 MOs/Kg (270-290); CHLORIDE 105 mEq/L (98-107); GLUCOSE 97 mg/dL (70-99); SODIUM LEVEL 136 mEq/L (137-146)
[2016-07-22] MEDS: MAGNESIUM OXIDE 400 MG TAB PO SCH ×2 (08:27→11:32)
[2016-07-22] MEDS: MAGIC MOUTHWASH 180 ML ORAL SUSP PO SCH ×2 (08:27→11:32)
[2016-07-22] MEDS: FLUCONAZOLE 100 MG TAB PO SCH (08:29)
[2016-07-22] MEDS: NYSTATIN ORAL SUSP 5 ML PO SCH ×2 (08:29→11:33)
[2016-07-22] MEDS: PEG-ELECTROLYTE 17 GM PACK PO SCH (08:29)
[2016-07-22] MEDS: ACETAMINOPHEN 325 MG/TAB TABLET PO PRN (08:30)
[2016-07-22] MEDS: POTASSIUM CHLORIDE 20 MEQ TAB PO SCH ×2 (08:41→11:42)
[2016-07-22 09:03] VITALS: BP 167/70; PULSE 95; TEMP 96.4
--- NOTE | 2016-07-22 09:07 | PCM.DCS92 ---
- Final/Secondary Discharge Diagnosis (1) Acute GI bleeding Acute K92.2 - GASTROINTESTINAL HEMORRHAGE, UNSPECIFIED Comment: Patient was admitted to the hospital with evidence of upper GI bleed, without any evidence of lucas GI bleeding but heme-positive stool. She does take a daily aspirin at home. She was seen in consultation by Dr. Pat of Gastroenterology who performed EGD and was patient was found to have some areas in the esophagus with bleeding due to gastritis, but no based ulcers. (2) Acute post-hemorrhagic anemia Acute D62 - ACUTE POSTHEMORRHAGIC ANEMIA Comment: Acute blood-loss anemia due to upper GI bleed. Good response to transfusion of 2 units of blood on July 19. Hemoglobin has since been stable. (3) Hyponatremia Acute E87.1 - HYPO-OSMOLALITY AND HYPONATREMIA Comment: Mild and asymptomatic. Will administer gentle IV normal saline and recheck sodium level in the morning. (4) Stomatitis Acute K12.1 - OTHER FORMS OF STOMATITIS Plan/Goal/Comment: Patient was treated empirically for 7 days in the hospital with IV Unasyn and vancomycin for stomatitis and parotitis. These have improved dramatically. (5) Physical deconditioning Acute R53.81 - OTHER MALAISE Comment: PTOT consulted. (6) Sacral fracture, closed Acute S32.10XA - UNSP FRACTURE OF SACRUM, INIT ENCNTR FOR CLOSED FRACTURE initial encounter unspecified portion of sacrum S32.10XA - Unspecified fracture of sacrum, initial encounter for closed fracture Comment: . (7) Hypertension Chronic I10 - ESSENTIAL (PRIMARY) HYPERTENSION essential hypertension I10 - Essential (primary) hypertension Comment: Continue home medication (8) Acute bilateral deep vein thrombosis (DVT) of femoral veins Acute I82.413 - ACUTE EMBOLISM AND THROMBOSIS OF FEMORAL VEIN, BILATERAL Comment: Patient was found to have bilateral lower extremity DVTs, she received 5 days of anticoagulation and had a filter placed on the 4th day. The IVC filter was placed by Dr. Cook of General surgery. Decision was made that given the patient's GI bleeding, it is likely not safe for her to be fully anticoagulated outside of a monitored situation. As such, IVC filter was placed and she will be discharged home today without anticoagulation. (9) Pulmonary emboli Acute I26.99 - OTHER PULMONARY EMBOLISM WITHOUT ACUTE COR PULMONALE acute without acute cor pulmonale Comment: Patient was found to have acute pulmonary emboli. Echocardiogram was performed, and there was no evidence of right heart strain. Due to the history of acute upper GI bleeding requiring blood transfusion, it was determined that it is not safe for the patient to be fully anticoagulated. As such, she had IVC filter placed during this hospital stay and will be discharged home without full anticoagulation. She was fully anticoagulated for 5 days after initial diagnosis. Discharge Disposition: Discharge w/ Home Health Discharge Condition: Improved Cognitive Discharge Status: Unimpaired Fuctional Discharge Status: Independent Physician Follow up/Referrals: Adam Pat MD [Staff Physician] - Listed Time None,No Provider [NonStaff] - One Week Home Medications / New Prescriptions: Continue Cholecalciferol (Vitamin D3) [Vitamin D] 1,000 unit PO DAILY Calcium Carbonate + Vitamin D [Oscal with Vitamin D] 500 mg PO BID Liraglutide [Victoza 18 mg/3 ml Pen] 1.8 units SQ DAILY Venlafaxine HCl ER [Effexor Xr] 75 mg PO DAILY PRN PRN Reason: Anxiety Promethazine [Phenergan] 25 mg PO Q6H PRN PRN Reason: Nausea/Vomiting Cyclobenzaprine HCl [Flexeril] 5 mg PO TID PRN PRN Reason: Pain Nabumetone [Relafen] 750 mg PO BID #30 tablet Oxycodone Immediate Release [Oxycodone Immediate Release (OxyIR)] 5 mg PO Q6H PRN #30 tab PRN Reason: Pain Ondansetron [Ondansetron Odt] 8 mg PO TID Lorazepam 0.5 mg PO QHS Loperamide HCl [Loperamide] 4 mg PO Q4H PRN PRN Reason: Diarrhea Pravastatin Sodium [Pravachol] 20 mg PO QHS Polyethylene Glycol 3350 [Miralax] 17 gm PO DAILY PRN PRN Reason: Constipation Ranitidine HCl 300 mg PO DAILY Changed Omeprazole 20 mg PO BID #60 capsule.dr Discontinued Aspirin [Aspirin EC] 81 mg PO QHS Losartan Potassium 100 mg PO DAILY O2 Device: Room Air Additional Instructions: Make sure you sit upright for 30 minutes after each meal and medications. Avoid spicy foods, and foods with high acid. Chew foods well. Eat slowly. Dr Walter office will call pt @ home, with pathology results. Diet at Discharge: Diabetic Activity: No Restrictions, As Tolerated - DC Summary Notes HPI/Notes: This is a pleasant 81-year-old female who was admitted to the hospital with upper GI bleed, and also diagnosed with pulmonary emboli and lower extremity DVT. She was also treated for stomatitis and parotitis while here in the hospital.Please see the hospital problems and discharge problems above for details of the hospital course including diagnostics and treatment. The plan of care including medications, prognosis, follow-up including alarm symptoms for which medical care should be sought were reviewed with the patient and any available family members/caretakers. The patient is agreeable to discharge today, and all questions were answered by me to their satisfaction. Hospital Course Note:: Discharge summary on patient named PATITO THORPE admitted to [facility] on 07/14/16 by Roberto Amaya MD. Date of discharge is []. Total Time: 48 - Physical Exam Vital Signs: Last Vital Signs Temp 96.4 F L 07/22/16 09:00 Pulse 95 07/22/16 09:00 Resp 18 07/22/16 09:00 BP 167/70 07/22/16 09:00 Pulse Ox 97 07/22/16 09:00 Oxygen Pulse Oxygen Saturation 97 O2 Device Room Air Oxygen Flow Rate 0 Fraction of Inspired Oxygen ( FIO2) Constitutional: No apparent distress, Alert Oriented to: Time, Person, Place Exam: Resting comfortably in bed this morning. She has no acute complaints. She is having breakfast this morning. - HEENT Head: Normal. negative: Laceration, Tender Eye: Normal. negative: Edema, Scleral Icterus Oropharynx: Normal. negative: Membranes Dry, Red ENT EAC: Normal. negative: Blood TMJ: Normal. negative: Crepitance, Tender Nose: No Symptoms Reported. negative: Abrasion, Bleeding - Respiratory/Cardiovascular Respiratory: Normal - CTA. negative: Accessory Muscle Use Cardiovascular: Normal - GI Auscultation: Normal. negative: Bruit Palpation: Normal. negative: Enlarged liver, Enlarged spleen Tenderness: Non tender. negative: Guarding, Rebound Soliz's Sign: Negative Rectal Exam: Deferred - Musculoskeletal Back: Normal. negative: Abrasion, Ecchymosis - Integumentary Lymphatics: Normal. negative: Adenopathy, Tender - Neurologic Memory Impaired: Normal Cerebellar: Normal Mood Description: Normal Thought: Coherent Perception: Normal
[2016-07-22] MEDS: ENOXAPARIN 80 MG/0.8 ML PFS SQ SCH (10:20)
[2016-07-22 10:50] VITALS: TEMP 96.4
== END 2016-07-22 12:57 | disposition home health service (06) | DRG 356 ==
LOC: ED 15:38 → EDINP 18:27 → PCU 21:48 → MPS3 07-20 21:02
PROVIDERS: ADMIT Internal Medicine; ATTEND Internal Medicine
PROC: 0DB68ZX Excision of Stomach, Via Natural or Artificial Opening Endoscopic, Diagnostic (ICD-10-PCS; principal; 2016-07-14)
PROC: 30233N1 Transfusion of Nonautologous Red Blood Cells into Peripheral Vein, Percutaneous Approach (ICD-10-PCS; 2016-07-15)
PROC: 06H03DZ Insertion of Intraluminal Device into Inferior Vena Cava, Percutaneous Approach (ICD-10-PCS; 2016-07-20)
DX: K29.71 Gastritis, unspecified, with bleeding (principal); I26.99 Other pulmonary embolism without acute cor pulmonale; I82.413 Acute embolism and thrombosis of femoral vein, bilateral; D62 Acute posthemorrhagic anemia; E87.1 Hypo-osmolality and hyponatremia; E11.65 Type 2 diabetes mellitus with hyperglycemia; M48.50XA Collapsed vertebra, not elsewhere classified, site unspecified, initial encounter for fracture; K22.10 Ulcer of esophagus without bleeding; R53.1 Weakness; I10 Essential (primary) hypertension; S32.10XD Unspecified fracture of sacrum, subsequent encounter for fracture with routine healing; E78.00 Pure hypercholesterolemia, unspecified; Z79.82 Long term (current) use of aspirin; Z79.899 Other long term (current) drug therapy; K21.9 Gastro-esophageal reflux disease without esophagitis; X58.XXXA Exposure to other specified factors, initial encounter; K11.21 Acute sialoadenitis; R26.9 Unspecified abnormalities of gait and mobility; W19.XXXD Unspecified fall, subsequent encounter; E83.51 Hypocalcemia; K44.9 Diaphragmatic hernia without obstruction or gangrene; K59.00 Constipation, unspecified
CPT/HCPCS: 36430; 43239; 70491; 71010; 71275; 73501; 77001; 80048; 80053; 80202; 81001; 82043; 82270; 82607; 82728; 82746; 82962; 83036; 83540; 83550; 83605; 83735; 84484; 85007; 85014; 85018; 85027; 85610; 85730; 86850; 86900; 86901; 86920; 87040; 87081; 87086; 87641; 93005; 93306; 93970; 96372; 97161; 99152; 99153; 99284; A9698; J0295; J1200; J1644; J1650; J1940; J2175; J2250; J3010; J3370; J3475; J3480; J3490; J7030; J7070; P9016; S0164